=== PATIENT | male | born 1970 | race Caucasian/White ===

== ENCOUNTER 2018-09-02 13:06 | Emergency (ER) | payer MEDICAID ==
[~2018-09-02] VITALS: Ht 182.9 cm; Wt 120.2 kg
[2018-09-02 14:30] VITALS: BP 130/85
== END 2018-09-02 15:21 | disposition home or self-care (01) ==
LOC: ER 13:06
DX: K12.2 Cellulitis and abscess of mouth (principal); J45.909 Unspecified asthma, uncomplicated
CPT/HCPCS: 71046

== ENCOUNTER 2020-04-27 08:03 | Emergency (ER) | payer BC, MEDICAID ==
[~2020-04-27] VITALS: Ht 185.4 cm; Wt 120.7 kg
[2020-04-27 08:15] VITALS: BP 134/94
[2020-04-27] MEDS ORDERED: KETOROLAC TROMETH 60MG/2ML VIAL IM ONE (08:45)
== END 2020-04-27 09:06 | disposition home or self-care (01) ==
LOC: ER 08:03
DX: S46.911A Strain of unspecified muscle, fascia and tendon at shoulder and upper arm level, right arm, initial encounter (principal); M19.011 Primary osteoarthritis, right shoulder; E11.9 Type 2 diabetes mellitus without complications; J45.909 Unspecified asthma, uncomplicated; X58.XXXA Exposure to other specified factors, initial encounter; Y93.9 Activity, unspecified; Y92.89 Other specified places as the place of occurrence of the external cause; Y99.8 Other external cause status
CPT/HCPCS: 73030; 96372; 99283; J1885

== ENCOUNTER 2020-10-23 20:25 | Emergency (ER) | payer BC ==
[~2020-10-23] VITALS: Ht 185.4 cm; Wt 115.7 kg
[2020-10-24 01:00] VITALS: BP 128/74
[2020-10-24] MEDS ORDERED: TETANUS-DIPTH-ACEL PERTUSSIS 0.5ML SYR Tdap IM ONE (01:00)
== END 2020-10-24 01:27 | disposition home or self-care (01) ==
LOC: ER 20:26
DX: S01.511A Laceration without foreign body of lip, initial encounter (principal); S09.93XA Unspecified injury of face, initial encounter; E11.9 Type 2 diabetes mellitus without complications; S01.21XA Laceration without foreign body of nose, initial encounter; W19.XXXA Unspecified fall, initial encounter; Y93.89 Activity, other specified; Y92.89 Other specified places as the place of occurrence of the external cause; Y99.8 Other external cause status
CPT/HCPCS: 12013; 82962; 90471; 90715

== ENCOUNTER 2021-07-23 19:14 | Emergency (ER) | payer BC ==
[~2021-07-23] VITALS: Ht 185.4 cm; Wt 133.8 kg
[2021-07-23 20:08] LABS: Basophils # (auto) 0.1 10 ^3/uL (0-0.2); Basophils % (auto) 0.8 % (0.0-2.0); Eosinophils # (auto) 0.1 10 ^3/uL (0-0.8); Hemoglobin 16.8 g/dL (13.5-17.5); Lymphocytes # (auto) 2.2 10 ^3/uL (0.4-5.4); Lymphocytes % (auto) 26.3 % (10.0-50.0); Mean Corpuscular Hemoglobin 29.7 pg (28.0-32.0); Mean Corpuscular Hgb Conc. 33.7 g/dL (32.0-36.0); Mean Corpuscular Volume 88.4 fL (80.0-100.0); Monocytes # (auto) 0.6 10 ^3/uL (0-1.3); Monocytes % (auto) 7.1 % (0.0-12.0); Neutrophils # (auto) 5.5 10 ^3/uL (1.6-8.6); Neutrophils % (auto) 64.8 % (37.0-80.0); Nucleated Red Blood Cells % 0.2 %; Red Blood Cells 5.66 10^6/uL (4.5-5.90); Red Cell Distribution Width 13.4 % (11.8-14.3); White Blood Cell 8.5 10^3/uL (4.4-10.8)
[2021-07-23 20:24] LABS: Albumin 3.7 g/dL (3.4-5.0); Anion Gap 9 (5-15); Blood Urea Nitrogen 21 mg/dL (7-18); Calcium 9.3 mg/dL (8.5-10.1); Carbon Dioxide 29 mmol/L (21-32); Chloride 98 mmol/L (98-107); Glucose 333 mg/dL (74-106); Potassium 4.2 mmol/L (3.5-5.1); Sodium 136 mmol/L (136-145)
[2021-07-23 20:30] LABS: Alanine Aminotransferase 41 U/L (16-61); Alkaline Phosphatase 119 U/L (45-117); Aspartate Aminotransferase 19 U/L (15-37); BUN/Creatinine Ratio 18.1; Bilirubin, Total 0.4 mg/dL (0.2-1.0); GFR African American 86 mL/min; GFR Non-African American 71 mL/min; Total Protein 7.6 g/dL (6.4-8.2)
[2021-07-23 21:09] LABS: Lactic Acid w/Reflex 2.3 mmol/L (0.4-2.0)
[2021-07-24 03:49] VITALS: BP 140/92
[2021-07-24] MEDS ORDERED: DexAMETHasone SOD PHOS 10MG/1ML VIAL INJ IV ONE (05:45)
== END 2021-07-24 03:58 | disposition home or self-care (01) ==
LOC: ER 19:15
DX: J44.1 Chronic obstructive pulmonary disease with (acute) exacerbation (principal); Z20.822 Contact with and (suspected) exposure to COVID-19
CPT/HCPCS: 36415; 71045; 80053; 83605; 84484; 85025; 87426; 93005

== ENCOUNTER 2022-02-19 20:39 | Emergency (ER) | payer SELFPAY ==
[~2022-02-19] VITALS: Ht 185.4 cm; Wt 104.3 kg
[2022-02-19 20:40] VITALS: BP 135/90
[2022-02-19] MEDS ORDERED: KETOROLAC TROMETH 60MG/2ML VIAL IM ONE (21:15)
[2022-02-19] MEDS ORDERED: BACITRACIN TOP OINT 1 UD PKG TOP ONE ×3 (21:30→21:52)
[2022-02-19] MEDS ORDERED: BAC09TP TOP (23:14)
== END 2022-02-19 23:11 | disposition left against medical advice (07) ==
LOC: ER 20:39
DX: T26.82XA Corrosions of other specified parts of left eye and adnexa, initial encounter (principal); T26.81XA Corrosions of other specified parts of right eye and adnexa, initial encounter; J45.909 Unspecified asthma, uncomplicated; E11.9 Type 2 diabetes mellitus without complications; T65.91XA Toxic effect of unspecified substance, accidental (unintentional), initial encounter; Y92.9 Unspecified place or not applicable
CPT/HCPCS: 96372; 99284; J1885; J7030

== ENCOUNTER 2022-12-08 10:58 | Emergency (ER) | payer SELFPAY ==
[~2022-12-08] VITALS: Ht 185.4 cm; Wt 114.2 kg
[~2022-12-08 10:58] MED LIST: BAC09TP TOP
[2022-12-08 15:06] VITALS: BP 133/99
[2022-12-08] MEDS ORDERED: ACETAMINOPHEN 500 MG TAB PO ONE (15:15)
[2022-12-08] MEDS ORDERED: AMOX-277 PO (15:15)
[2022-12-08] MEDS ORDERED: cefTRIAXone SOD 1,000 MG VL IM ONE (15:15)
== END 2022-12-08 15:34 | disposition home or self-care (01) ==
LOC: ER 10:58
DX: H66.92 Otitis media, unspecified, left ear (principal); J02.9 Acute pharyngitis, unspecified; J45.909 Unspecified asthma, uncomplicated; E11.9 Type 2 diabetes mellitus without complications
CPT/HCPCS: 96375; 99283; J0696

== ENCOUNTER 2024-09-01 11:22 | Emergency (ER) | payer BC, MEDICAID ==
[~2024-09-01] VITALS: Ht 185.4 cm; Wt 112.2 kg
[~2024-09-01 11:22] MED LIST changes: +AMOX875T4 PO
[2024-09-01 11:55] LABS: Basophils # (auto) 0.1 10 ^3/uL (0-0.2); Eosinophils # (auto) 0.2 10 ^3/uL (0-0.8); Eosinophils % (auto) 2.1 % (0.0-7.0); Hematocrit 46.4 % (41.0-53.0); Hemoglobin 15.9 g/dL (13.5-17.5); Lymphocytes # (auto) 3.4 10 ^3/uL (0.4-5.4); Lymphocytes % (auto) 33.4 % (10.0-50.0); Mean Corpuscular Hemoglobin 29.7 pg (28.0-32.0); Mean Corpuscular Hgb Conc. 34.4 g/dL (32.0-36.0); Mean Corpuscular Volume 86.4 fL (80.0-100.0); Monocytes # (auto) 0.8 10 ^3/uL (0-1.3); Monocytes % (auto) 7.9 % (0.0-12.0); Neutrophils # (auto) 5.7 10 ^3/uL (1.6-8.6); Neutrophils % (auto) 55.6 % (37.0-80.0); Nucleated Red Blood Cells % 0.2 %; Platelet Count (auto) 312 10^3/uL (140-450); Red Blood Cells 5.37 10^6/uL (4.5-5.90); Red Cell Distribution Width 13.7 % (11.8-14.3); White Blood Cell 10.3 10^3/uL (4.4-10.8)
[2024-09-01 12:15] LABS: Alanine Aminotransferase 24 U/L (7-40); Albumin 4.5 g/dL (3.2-4.8); Alkaline Phosphatase 110 U/L (46-116); Anion Gap 7 (5-15); Aspartate Aminotransferase 9 U/L (13-40); Blood Urea Nitrogen 21 mg/dL (9-23); Calcium 10.2 mg/dL (8.7-10.4); Carbon Dioxide 29 mmol/L (20-31); Chloride 100 mmol/L (98-107); Glucose 215 mg/dL (74-106); Sodium 136 mmol/L (136-145)
[2024-09-01 12:16] LABS: Bilirubin, Total 0.5 mg/dL (0.2-1.0); Total Protein 7.3 g/dL (5.7-8.2)
[2024-09-01 12:17] LABS: INR 1.03 (0.9-1.15); Partial Thromboplastin Time 28.2 SEC (24.5-34.5); Prothrombin Time 10.9 sec (9.3-11.8)
[2024-09-01] MEDS: ALBUTEROL SULF 2.5 MG/0.5ML(0.5%) NEB SOLN NEB ONE (13:42)
[2024-09-01 17:23] VITALS: PULSE 89; RESP 16; O2SAT 98
[2024-09-01] MEDS: IOHEXOL 350 MG/ML 100ML IJ ONE (17:33)
[2024-09-01] MEDS ORDERED: PANT40TA2 PO (19:14)
[2024-09-01 19:30] VITALS: BP 134/77; PULSE 87; RESP 19; TEMP 98.6; O2SAT 96
== END 2024-09-01 19:44 | disposition home or self-care (01) ==
LOC: ER 11:22
DX: K20.90 Esophagitis, unspecified without bleeding (principal); K29.70 Gastritis, unspecified, without bleeding; R06.02 Shortness of breath; R07.89 Other chest pain; R05.9 Cough, unspecified; J44.9 Chronic obstructive pulmonary disease, unspecified; E11.9 Type 2 diabetes mellitus without complications
CPT/HCPCS: 36415; 71045; 71275; 80053; 84484; 85025; 85379; 85610; 85730; 93005; 94640; 99285; Q9967

== ENCOUNTER 2024-11-06 13:30 | Inpatient (IN) | payer SELFPAY ==
[~2024-11-06] VITALS: Ht 185.4 cm; Wt 107.0 kg
[~2024-11-06 13:30] MED LIST changes: +PANT40TA2 PO
--- NOTE | 2024-11-06 14:01 | ED.PDOC ---
HPI Comments HPI: Poor Historian. 54-year-old male presents to emergency department for evaluation of dizziness spells for the last 2-3 weeks. Patient today was getting out of his truck in the next thing he knows he wakes up on the concrete driveway. He had a syncopal episode with closed head injury. Denies any pain anywhere in his body. This never happened before. VITALS: T:97.5 HR:120 RR:18 O2:96 BP:111/82 SOCIAL HX: DENIES TOBACCO USAGE, ETOH CONSUMPTION, OR ILLICIT DRUG USE SHX: SPINAL/CERVICAL PMHX: DM ALLERGIES: NKA REVIEW OF SYSTEMS: CONSTITUTIONAL: Denies acute: fever, diaphoresis, chills, generalized weakness. HEAD: Denies acute: headache, photophobia Eyes: Denies acute: Double vision, vision loss, eye pain, eye discharge. EARS: Denies acute: tinnitus, hearing loss, ear discharge, ear pain, THROAT: Denies acute: sore throat, swelling, difficulty swallowing , pain with swallowing, change in voice. NECK: Denies acute: neck pain, neck swelling, stiff neck. HEART: Denies acute : chest pain, palpitations, LUNGS: Denies acute: SOB, wheezing, cough, hemoptysis ABDOMEN: Denies acute: abdominal pain, Nausea, Vomiting, diarrhea, melena , hematemesis, hematochezia SKIN: Denies acute: rash, redness, lesions, itchiness. EXTREMITIES: Denies acute: calf pain, numbness, tingling, weakness, denies pain in extremity. Denies acute: Low back pain. Neuro: Denies acute: focal neurological deficit, motor or sensory focal neurological deficit, tremors, seizure like activity, confusion, change in mental status, loss of bowel or bladder function, cauda equina like symptoms. : Denies acute: dysuria, hematuria, flank pain, increase in urinary frequency. PSYCH: Denies acute: hallucination, suicidal ideation, homicidal ideation. PHYSICAL EXAM: General: no acute distress, awake and alert. Head: normocephalic, atraumatic. Cervical spine: Palpation of the posterior midline of the cervical spine reveals no focal swelling, erythema, focal tenderness to palpation. Patient has normal range of motion. Neck: supple, trachea is midline, no swelling. Throat: Normal phonation. Eyes:, no erythema, no purulent discharge, no proptosis, no icterus. Heart: regular tachycardic, no significant murmur appreciated. Lungs: no apparent respiratory distress, Able to speak in full sentences. No wheezing, no rhonchi, no crackles. No stridors Clear to auscultation bilaterally. Abdomen: non tender to palpation, non distended, soft, no guarding, no rebound, + bowel sounds. Neuro: Awake, Alert, oriented to name, self, situation, follows commands GCS=15. Speech is normal. Skin: no petechia, no purpura, no cyanosis, non-pale, not jaundice. Lower extremities: --no - Pitting edema no deformity, no focal swelling, no calf TTP. Makes eye contact. moves all four extremities. Face: no apparent facial droop. Ambulating in the ED independently. Stroke: finger to nose cerebellar testing is intact. No pronator drift. Symmetrical media monitor muscle strength b/l PERRLA, EOM-I CN 2-12 are grossly intact, No nystagmus. No nuchal rigidity, Kernig's sign, Brudzinski's sign, no meningeal signs. Chief Complaint: Syncope Time Seen by MD: 13:40 Primary Care Provider: DENIES Reviewed Notes: Nurses Notes, Medications, Allergies Allergies: Coded Allergies: NO KNOWN ALLERGIES (Unverified , 09/02/18) Home Meds Active Scripts Pantoprazole Sodium Sesquihydr (Protonix) 40 Mg Tab, 40 MG PO DAILY, #30 TAB Prov:NABIL PAVON MD 09/01/24 Amoxicillin & Pot Clavulanate (Amoxicillin/Potassium Cla) 875 Mg Tab, 875 MG PO BID for 10 Days, #20 TAB 0 Refills Prov:MALIK BETTS 12/08/22 Bacitracin (Bacitracin Oint) 1 Applic Ap, 1 APPLIC TOP DAILY for 20 Days, #1 BOTTLE Prov:MATEO MARQUIS MD 02/19/22 Information Source: Patient Mode of Arrival: Ambulatory Severity: Mild Timing: Hours Duration: Since onset Prehospital treatment: NTG Cardiac Risk Factors: None PE Risk Factors: None History of: None Associated Signs and Symptoms: None Was a procedure done? Was a procedure done?: No X-Ray, Labs, Meds, VS Vital Signs Date Time Temp Pulse Resp B/P (MAP) Pulse Ox O2 Delivery O2 Flow Rate FiO2 11/06/24 17:55 114 19 95 Room Air* 0 21 11/06/24 17:55 98.2 114 20 114/82 (93) 98 98.2 11/06/24 17:54 114 20 114/82 11/06/24 13:44 98.0 120 18 111/82 (92) 96 11/06/24 13:39 123 Lab Test 11/06/24 17:42 11/06/24 17:02 11/06/24 15:24 11/06/24 14:11 Range/Units Urine Color Yellow Yellow Urine Clarity Clear Clear Urine pH 5.5 5.0-9.0 Urine Specific [place] 1.025 1.001-1.035 Urine Protein 1+ H Negative Urine Ketones 2+ H Negative Urine Blood Negative Negative /uL Urine Nitrite Negative Negative Urine Bilirubin Negative Negative Urine Urobilinogen Normal Negative mg/dL Urine Leukocyte Esterase Negative Negative /uL Urine RBC 1 0 - 3 /hpf Urine WBC 1 0 - 3 /hpf Urine Squamous Epithelial Cells Few <5 /hpf Urine Bacteria None seen None Seen /hpf Urine Hyaline Casts Few 0 - 2 /lpf Urine Mucus Few None Seen Urine Glucose 3+ H Normal mg/dL Urine Opiates Screen Neg NEGATIVE Urine Fentanyl Screen Neg NEGATIVE Urine Barbiturates Screen Neg NEGATIVE Urine Phencyclidine Screen Neg NEGATIVE Urine Amphetamines Screen Neg NEGATIVE Urine Benzodiazepines Screen Neg NEGATIVE Urine Cocaine Screen Neg NEGATIVE Urine Cannabinoids Screen Neg NEGATIVE Troponin I High Sensitivity 4 3 L 3 L </=54 ng/L White Blood Count 10.3 4.4-10.8 10^3/uL Red Blood Count 5.75 4.5-5.90 10^6/uL Hemoglobin 16.9 13.5-17.5 g/dL Hematocrit 49.7 41.0-53.0 % Mean Corpuscular Volume 86.5 80.0-100.0 fL Mean Corpuscular Hemoglobin 29.4 28.0-32.0 pg Mean Corpuscular Hemoglobin Concent 34.0 32.0-36.0 g/dL Red Cell Distribution Width 13.6 11.8-14.3 % Platelet Count 331 140-450 10^3/uL Mean Platelet Volume 8.1 6.9-10.8 fL Neutrophils (%) (Auto) 73.6 37.0-80.0 % Lymphocytes (%) (Auto) 17.5 10.0-50.0 % Monocytes (%) (Auto) 7.2 0.0-12.0 % Eosinophils (%) (Auto) 1.3 0.0-7.0 % Basophils (%) (Auto) 0.4 0.0-2.0 % Neutrophils # (Auto) 7.6 1.6-8.6 10 ^3/uL Lymphocytes # (Auto) 1.8 0.4-5.4 10 ^3/uL Monocytes # (Auto) 0.7 0-1.3 10 ^3/uL Eosinophils # (Auto) 0.1 0-0.8 10 ^3/uL Basophils # (Auto) 0 0-0.2 10 ^3/uL Nucleated Red Blood Cells 0.1 % D-Dimer, Quantitative 0.38 0.0-0.49 mg/L FEU Sodium Level 136 136-145 mmol/L Potassium Level 4.5 3.5-5.1 mmol/L Chloride Level 99 98-107 mmol/L Carbon Dioxide Level 28 20-31 mmol/L Anion Gap 9 5-15 Blood Urea Nitrogen 39 H 9-23 mg/dL Creatinine 1.83 H 0.700-1.30 mg/dL Glomerular Filtration Rate Calc 44 >90 mL/min BUN/Creatinine Ratio 21.3 H 10.0-20.0 Serum Glucose 252 H 74-106 mg/dL Lactic Acid Level 1.8 0.4-2.0 mmol/L Calcium Level 10.6 H 8.7-10.4 mg/dL Magnesium Level 2.2 1.6-2.6 mg/dL Total Bilirubin 0.7 0.2-1.0 mg/dL Aspartate Amino Transferase (AST) 22 13-40 U/L Alanine Aminotransferase (ALT) 27 7-40 U/L Alkaline Phosphatase 168 H 46-116 U/L Creatine Kinase 95 46-171 U/L Total Protein 7.7 5.7-8.2 g/dL Albumin 4.9 H 3.2-4.8 g/dL Current Medications Medications (Trade) Dose Ordered Sig/Dino Route Start Time Stop Time Status Last Admin Sodium Chloride 1,000 ml @ 1,000 mls/hr Q1H ONCE IV 11/06/24 14:00 11/06/24 14:59 DC 11/06/24 16:41 Morphine Sulfate 4 mg ONCE ONCE IV 11/06/24 17:00 11/06/24 17:01 DC 11/06/24 17:54 Ondansetron HCl (Zofran) 4 mg ONCE ONCE IV 11/06/24 17:00 11/06/24 17:01 DC 11/06/24 17:54 [place] [address] Ph: [phone] DIAGNOSTIC IMAGING Diagnostic Imaging Report : [id number] Signed PATIENT: AGUSTO MUNROE PACCT: [id number] UNIT: [id number] : 1970 LOC: ER ROOM / BED: / AGE / SEX: 54 / M ADM STATUS: REG ER SERVICE 1346 ORDERING PHYSICIAN: GARLAND GAXIOLA DO PROCEDURE(s): CXRP - CHEST PORTABLE REASON: syncope, [facility] ORDER NUMBER(s): [id number], ACCESSION NUMBER(s): [id number] CHEST RADIOGRAPH Indication: syncope, [facility] Technique: Single frontal view of the chest was obtained COMPARISON: XY CHEST PORTABLE on DOS: 09/01/24, CHEST PORTABLE on DOS: 07/23/21, CXRP on DOS: 07/23/21 FINDINGS: Lines and Tubes: None Lungs: Clear Pleura: No effusion. No pneumothorax. Cardiomediastinal contours: Unremarkable Bones: Unremarkable Metallic opacity in the visualized midline neck, projecting over the trachea, is unchanged since July 23, 2021, probably an implant /device or foreign body. IMPRESSION: 1. No acute disease. ATED BY: AVA DICKENS MD DICTATED DATE/TIME: 11/06/241422 SIGNED BY: AVA DICKENS MD SIGNED DATE/TIME: 11/06/241422 CC: [address] [id number] Ph: [phone] DIAGNOSTIC IMAGING Diagnostic Imaging Report : [id number] Signed PATIENT: AGUSTO MUNROE PACCT: [id number] UNIT: [id number] : 1970 LOC: ER ROOM / BED: / AGE / SEX: 54 / M ADM STATUS: REG ER SERVICE 1346 ORDERING PHYSICIAN: GARLAND GAXIOLA DO PROCEDURE(s): HWOCT - HEAD WITHOUT CONTRAST REASON: syncope, [facility] ORDER NUMBER(s): [id number], ACCESSION NUMBER(s): [id number] EXAM: CT HEAD WITHOUT CONTRAST INDICATION: syncope, [facility] TECHNIQUE: CT of the head without intravenous contrast. Coronal and sagittal reformatted images are submitted. Radiation Dose : 1. Head: CT Dose: CTDI volume is 62.32 mGy. Dose-length product is 998.83 mGy*cm The dose indicators for CT are the volume Computed Tomography (CT) Dose Index (CTDIvol) and the Dose Length Product (DLP), and are measured in units of mGy and mGy-cm, respectively. These indicators are not patient dose, but values generated from the CT scanner acquisition factors. The report includes radiation exposure data for exposures received during this examination. All CT scans at this medical facility are performed using dose modulation techniques as appropriate to a performed exam including the following: Automated exposure control was utilized; adjustment of the MA and/or KV according to patient size; and use of iterative reconstruction technique. COMPARISON: None FINDINGS: There is no evidence of acute intracranial hemorrhage, extra-axial collection, mass effect, midline shift, herniation or hydrocephalus. The ventricles, sulci and cisterns are age appropriate. The nicole-white differentiation is intact. The visualized paranasal sinuses and mastoid air cells are clear. No depressed calvarial fracture. The surrounding soft tissues are unremarkable. IMPRESSION: 1. No evidence of acute intracranial abnormality. ATED BY: GEOVANNA WHEATLEY MD DICTATED DATE/TIME: 11/06/241413 SIGNED BY: GEOVANNA WHEATLEY MD SIGNED DATE/TIME: 11/06/241413 CC: Time of 1ST Reevaluation: 14:20 Reevaluation 1ST: Unchanged Patient Education/Counseling: Diagnosis, Treatment Family Education/Counseling: No Family Present Comments 54-year-old male presents to emergency department for evaluation of dizziness spells for the last 2-3 weeks. Patient was found with the above mentioned diagnosis. the following medications were ordered: NS 1L the following tests were ordered: LABS, EKG, CXR, CT Patient ED course and VS have been stabilized. Patient has been reassessed in the ED and remained in a stable condition. Pertinent incidental findings were discussed with the patient and/or family. Patient/family voices understanding and is agreeable with plan. Patient has been observed in the ED adequate length of time to insure improvement/stability. Escalation of care considered: Consideration of escalation to observation or admission Patient was ADMITTED to the medicine team for further evaluation and treatment of their presentation. Patient was discharged. All the reports of any imaging studies that were ordered by myself were reviewed by myself. Departure 1 Departure Time of Disposition: 14:12 Impression: Primary Impression: Syncope and collapse Additional Impressions: Closed head injury Acute renal insufficiency Disposition: ADMITTED INPATIENT Admit to: Tele Condition: Guarded Additional Instructions: [place] [address] Ph: [phone] DIAGNOSTIC IMAGING Diagnostic Imaging Report : [id number] Signed PATIENT: AGUSTO MUNROE ACCT: [id number] UNIT: [id number] : 1970 LOC: ER ROOM / BED: / AGE / SEX: 54 / M ADM STATUS: REG ER SERVICE 1346 ORDERING PHYSICIAN: GARLAND GAXIOLA DO PROCEDURE(s): CXRP - CHEST PORTABLE REASON: syncope, [facility] ORDER NUMBER(s): [id number], ACCESSION NUMBER(s): [id number] CHEST RADIOGRAPH Indication: syncope, [facility] Technique: Single frontal view of the chest was obtained COMPARISON: XY CHEST PORTABLE on DOS: 09/01/24, CHEST PORTABLE on DOS: 07/23/21, CXRP on DOS: 07/23/21 FINDINGS: Lines and Tubes: None Lungs: Clear Pleura: No effusion. No pneumothorax. Cardiomediastinal contours: Unremarkable Bones: Unremarkable Metallic opacity in the visualized midline neck, projecting over the trachea, is unchanged since July 23, 2021, probably an implant /device or foreign body. IMPRESSION: CC: 1. No acute disease. ATED BY: AVA DICKENS MD DICTATED DATE/TIME: 11/06/24 1423 SIGNED BY: AVA DICKENS MD SIGNED DATE/TIME: 11/06/24 1423 CC: [place] [address] Ph: [phone] DIAGNOSTIC IMAGING Diagnostic Imaging Report : [id number] Signed PATIENT: AGUSTO MUNROE ACCT: [id number] UNIT: [id number] : 1970 LOC: ER ROOM / BED: / AGE / SEX: 54 / M ADM STATUS: REG ER SERVICE 1346 ORDERING PHYSICIAN: GARLAND GAXIOLA DO PROCEDURE(s): HWOCT - HEAD WITHOUT CONTRAST REASON: syncope, [facility] ORDER NUMBER(s): [id number], ACCESSION NUMBER(s): [id number] EXAM: CT HEAD WITHOUT CONTRAST INDICATION: syncope, [facility] TECHNIQUE: CT of the head without intravenous contrast. Coronal and sagittal reformatted images are submitted. Radiation Dose : 1. Head: CT Dose: CTDI volume is 62.32 mGy. Dose-length product is 998.83 mGy*cm The dose indicators for CT are the volume Computed Tomography (CT) Dose Index (CTDIvol) and the Dose Length Product (DLP), and are measured in units of mGy and mGy-cm, respectively. These indicators are not patient dose, but values generated from the CT scanner acquisition factors. The report includes radiation exposure data for exposures received during this examination. All CT scans at this medical facility are performed using dose modulation techniques as appropriate to a performed exam including the following: Automated exposure control was utilized; adjustment of the MA and/or KV according to patient size; and use of iterative reconstruction technique. COMPARISON: None FINDINGS: There is no evidence of acute intracranial hemorrhage, extra-axial collection, mass effect, midline shift, herniation or hydrocephalus. The ventricles, sulci and cisterns are age appropriate. The nicole-white differentiation is intact. The visualized paranasal sinuses and mastoid air cells are clear. No depressed calvarial fracture. The surrounding soft tissues are unremarkable. IMPRESSION: 1. No evidence of acute intracranial abnormality. ATED BY: GEOVANNA WHEATLEY MD DICTATED DATE/TIME: 11/06/241413 SIGNED BY: GEOVANNA WHEATLEY MD SIGNED DATE/TIME: 11/06/24 141 Discharged With: Self I personally scribed for GARLAND GAXIOLA DO ([email or web address]) on 11/06/24 at 14:01. Electronically submitted by Shayla Zurita ([email or web address]). I personally scribed for GARLAND GAXIOLA DO ([email or web address]) on 11/06/24 at 16:40. Electronically submitted by Shayla Zurita ([email or web address]). I personally scribed for GARLAND GAXIOLA DO ([email or web address]) on 11/06/24 at 16:43. Electronically submitted by Shayla Zurita ([email or web address]). GARLAND GAXIOLA DO Nov 06, 2024 14:01
--- NOTE | 2024-11-06 14:16 | DVH ---
EXAM: CT HEAD WITHOUT CONTRAST INDICATION: syncope, [facility] TECHNIQUE: CT of the head without intravenous contrast. Coronal and sagittal reformatted images are submitted. Radiation Dose : 1. Head: CT Dose: CTDI volume is 62.32 mGy. Dose-length product is 998.83 mGy*cm The dose indicators for CT are the volume Computed Tomography (CT) Dose Index (CTDIvol) and the Dose Length Product (DLP), and are measured in units of mGy and mGy-cm, respectively. These indicators are not patient dose, but values generated from the CT scanner acquisition factors. The report includes radiation exposure data for exposures received during this examination. All CT scans at this medical facility are performed using dose modulation techniques as appropriate to a performed exam including the following: Automated exposure control was utilized; adjustment of the MA and/or KV according to patient size; and use of iterative reconstruction technique. COMPARISON: None FINDINGS: There is no evidence of acute intracranial hemorrhage, extra-axial collection, mass effect, midline s hift, herniation or hydrocephalus. The ventricles, sulci and cisterns are age appropriate. The nicole-white differentiation is intact. The visualized paranasal sinuses and mastoid air cells are clear. No depressed calvarial fracture. The surrounding soft tissues are unremarkable. IMPRESSION: 1. No evidence of acute intracranial abnormality.
--- NOTE | 2024-11-06 14:25 | DVH ---
CHEST RADIOGRAPH Indication: syncope, [facility] Technique: Single frontal view of the chest was obtained COMPARISON: XY CHEST PORTABLE on DOS: 09/01/24, CHEST PORTABLE on DOS: 07/23/21, CXRP on DOS: 07/23/21 FINDINGS: Lines and Tubes: None Lungs: Clear Pleura: No effusion. No pneumothorax. Cardiomediastinal contours: Unremarkable Bones: Unremarkable Metallic opacity in the visualized midline neck, projecting over the trachea, is unchanged since Sept emb2020, probably an implant /device or foreign body. IMPRESSION: 1. No acute disease.
[2024-11-06 14:58] LABS: Basophils # (auto) 0 10 ^3/uL (0-0.2); Basophils % (auto) 0.4 % (0.0-2.0); Eosinophils # (auto) 0.1 10 ^3/uL (0-0.8); Eosinophils % (auto) 1.3 % (0.0-7.0); Hematocrit 49.7 % (41.0-53.0); Hemoglobin 16.9 g/dL (13.5-17.5); Lymphocytes # (auto) 1.8 10 ^3/uL (0.4-5.4); Lymphocytes % (auto) 17.5 % (10.0-50.0); Mean Corpuscular Hemoglobin 29.4 pg (28.0-32.0); Mean Corpuscular Volume 86.5 fL (80.0-100.0); Monocytes # (auto) 0.7 10 ^3/uL (0-1.3); Monocytes % (auto) 7.2 % (0.0-12.0); Neutrophils # (auto) 7.6 10 ^3/uL (1.6-8.6); Neutrophils % (auto) 73.6 % (37.0-80.0); Nucleated Red Blood Cells % 0.1 %; Platelet Count (auto) 331 10^3/uL (140-450); Red Blood Cells 5.75 10^6/uL (4.5-5.90); Red Cell Distribution Width 13.6 % (11.8-14.3); White Blood Cell 10.3 10^3/uL (4.4-10.8)
[2024-11-06 15:13] LABS: Alanine Aminotransferase 27 U/L (7-40); Anion Gap 9 (5-15); Aspartate Aminotransferase 22 U/L (13-40); BUN/Creatinine Ratio 21.3 (10.0-20.0); Carbon Dioxide 28 mmol/L (20-31); Chloride 99 mmol/L (98-107); Creatine Kinase IFCC 95 U/L (46-171); Magnesium 2.2 mg/dL (1.6-2.6); Potassium 4.5 mmol/L (3.5-5.1); Sodium 136 mmol/L (136-145)
[2024-11-06 15:14] LABS: Bilirubin, Total 0.7 mg/dL (0.2-1.0); Total Protein 7.7 g/dL (5.7-8.2)
[2024-11-06 15:30] LABS: Albumin 4.9 g/dL (3.2-4.8); Alkaline Phosphatase 168 U/L (46-116); Blood Urea Nitrogen 39 mg/dL (9-23); Calcium 10.6 mg/dL (8.7-10.4); Glucose 252 mg/dL (74-106)
[2024-11-06] MEDS: SODIUM CHLORIDE 0.9% 1,000 ML IV ONE (16:41)
[2024-11-06 17:49] LABS: Urine Bacteria None Seen /hpf (None Seen)
[2024-11-06] MEDS: ONDANSETRON HCL 4 MG/2 ML VIAL IV ONE (17:54)
[2024-11-06] MEDS: MORPHINE SULFATE 4 MG/ML SYR/VIAL IV ONE (17:54)
[2024-11-06 17:55] VITALS: PULSE 114; RESP 19; O2SAT 95
[2024-11-06 18:19] LABS: Urine Blood Negative /uL (Negative); Urine Clarity Clear (Clear); Urine Color Yellow (Yellow); Urine Hyaline Cast FEW /lpf (0 - 2); Urine Mucus FEW (None Seen); Urine Protein, UAD 1+ (Negative); Urine Specific Gravity 1.025 (1.001-1.035); Urine Squamous Epithelial Cell FEW /hpf (<5); Urine Urobilinogen Normal (Negative); Urine WBC 1 /hpf (0 - 3); Urine pH 5.5 (5.0-9.0)
[2024-11-06 18:20] LABS: Amphetamine Screen, Urine Neg (NEGATIVE); Barbiturate Scree,Urine Neg (NEGATIVE); Benzodiazephine Screen, Urine Neg (NEGATIVE); Cannabinoid Screen, Urine Neg (NEGATIVE); Cocaine Screen, Urine Neg (NEGATIVE); Opiate Scree,Urine Neg (NEGATIVE); Phencyclidine Screen, Urine Neg (NEGATIVE)
[2024-11-06] MEDS ORDERED: ACETAMINOPHEN 325 MG TAB PO PRN (21:30)
[2024-11-06] MEDS ORDERED: ONDANSETRON HCL 4 MG/2 ML VIAL IV PRN (21:30)
[2024-11-06] MEDS ORDERED: DEXTROSE (50%) 50ML SYRG IV PRN (21:30)
[2024-11-06] MEDS ORDERED: DOCUSATE SOD 100 MG CAP PO PRN (21:30)
[2024-11-06] MEDS: SODIUM CHLOR 0.9% PF (SALINE LOCK) 10ML VIAL/SYR IV SCH (22:03)
[2024-11-06] MEDS: HYDROcodone-ACET 5/325MG TAB PO PRN (23:03)
[2024-11-07] MEDS: InsuLIN REG 1unit/0.01ml Soln (100units/ml) SC SCH
[2024-11-07] MEDS: ACCU-CHEK COMFORT CURVE STRIP VI SCH (00:02)
--- NOTE | 2024-11-07 00:07 | DVHHP2 ---
History of Present Illness Reason for Visit: Syncope History of Present Illness The patient is a 54-year-old male with past medical history of diabetes mellitus who presented to [facility] ED for evaluation of syncopal episode. Patient reports he has been having dizzy spells 40 the past 2-3 weeks; today as he was getting out his truck he had syncopal episode, wake up on the concrete driveway with closed head injury, unable to recall event. Patient was seen and evaluated in the ED, laboratory data shows WBC 10.3, platelets 331, sodium 136, potassium 4.5, BUN 39, creatinine 1.83, GFR 44, glucose 252, calcium 10.6, troponin 4, albumin 4.9, blood pressure 114/82, heart rate 114, temperature 98. 2 F, O2 saturation 98% room air. Head CT showed no evidence of acute intracranial abnormality. Please see medication orders section in the computer. On my assessment, patient denied chest pain, no headache, no dizziness, no diaphoresis, no shortness of breath, no nausea, no vomiting, no fever, no chills. Patient was admitted for further evaluation and medical management. Past Medical History Diabetes mellitus Past Surgical History Spinal/cervical surgery Family History Reviewed, noncontributory to the management of this case. Past Social History The patient lives at home, denies smoking, alcohol or illicit drugs abuse. Review of Systems Constitutional: Yes: Weakness; No: Fever, Chills, Sweats, Malaise, Other Eyes: No: Pain, Vision change, Conjunctivae inflammation, Eyelid inflammation, Other, Redness ENT: No: Ear pain, Ear discharge, Nose pain, Nose discharge, Nose congestion, Mouth pain, Mouth swelling, Throat pain, Throat swelling, Other Respiratory: No: Cough, Dry, Shortness of breath, SOB with excertion, Wheezing, Hemoptysis, Pleuritic Pain, Sputum, Wheezing, Other Cardiovascular: Other (Syncope); No: Chest Pain, Palpitations, Orthopnea, Paroxysmal Noc. Dyspnea, Edema, Lt Headedness Gastrointestinal: No: Nausea, Vomiting, Abdominal Pain, Diarrhea, Constipation, Melena, Hematochezia, Other Genitourinary: No Dysuria, No Frequency, No Incontinence, No Hematuria, No Retention, No Other Musculoskeletal: No: other, neck pain, shoulder pain, arm pain, back pain, hand pain, leg pain, foot pain Skin: No: Rash, Lesions, Jaundice, Bruising, Other Neurological: No: Weakness, Numbness, Incoordination, Change in speech, Confusion, Seizures, Other Allergies: Coded Allergies: NO KNOWN ALLERGIES (Unverified , 09/02/18) Medications Current Medications Medications Dose Ordered Sig/Dino Route Start Time Stop Time Status Last Admin Dose Admin Diagnostic Test (Pha) 1 strip IQ4HR 11/07/24 00:00 11/07/24 00:02 1 STRIP Insulin Human Regular IQ4HR SC 11/07/24 00:00 Dextrose 50 ml UD PRN IV 11/06/24 21:30 Sodium Chloride 10 ml Q8HR IV 11/06/24 22:00 11/06/24 22:03 10 ML Acetaminophen/ Hydrocodone Bitart 1 tab Q4HP PRN PO 11/06/24 21:30 11/06/24 23:03 1 TAB Ondansetron HCl 4 mg Q4HP PRN IV 11/06/24 21:30 Docusate Sodium 100 mg BIDPRN PRN PO 11/06/24 21:30 Acetaminophen 650 mg Q6HP PRN PO 11/06/24 21:30 Famotidine 20 mg DAILY IV 11/07/24 10:00 Exam Vital Signs Vital Signs Date Time Temp Pulse Resp B/P (MAP) Pulse Ox O2 Delivery O2 Flow Rate FiO2 11/06/24 23:03 107 16 107/97 11/06/24 23:00 98.0 97 98.0 11/06/24 17:55 Room Air* 0 21 General Appearance: Alert, Oriented X3, Cooperative, No acute distress HEENT: Atraumatic, PERRLA, EOMI, Mucous membr. moist/pink Respiratory: Clear to auscultation, Normal air movement Cardiovascular: Regular rate, Normal S1, Normal S2, No murmurs Abdominal: Normal bowel sounds, Soft, No tenderness, No hepatospenomegaly, No masses Extremities: No clubbing, No cyanosis, No edema, Normal pulses, No tendern ess/swelling Skin: No rashes, No breakdown, No significant lesion Neuro: Normal speech, Normal tone, Sensation intact, Cranial nerves 3-12 NL, Reflexes 2+, Other (Generalized weakness) Psych/Mental Status: Mental status NL, Mood NL Labs/Xrays Labs Test 1/4/25 17:42 11/06/24 17:02 11/06/24 14:11 Range/Units Urine Color Yellow Yellow Urine Clarity Clear Clear Urine pH 5.5 5.0-9.0 Urine Specific [place] 1.025 1.001-1.035 Urine Protein 1+ H Negative Urine Ketones 2+ H Negative Urine Blood Negative Negative /uL Urine Nitrite Negative Negative Urine Bilirubin Negative Negative Urine Urobilinogen Normal Negative mg/dL Urine Leukocyte Esterase Negative Negative /uL Urine RBC 1 0 - 3 /hpf Urine WBC 1 0 - 3 /hpf Urine Squamous Epithelial Cells Few <5 /hpf Urine Bacteria None seen None Seen /hpf Urine Hyaline Casts Few 0 - 2 /lpf Urine Mucus Few None Seen Urine Glucose 3+ H Normal mg/dL Urine Opiates Screen Neg NEGATIVE Urine Fentanyl Screen Neg NEGATIVE Urine Barbiturates Screen Neg NEGATIVE Urine Phencyclidine Screen Neg NEGATIVE Urine Amphetamines Screen Neg NEGATIVE Urine Benzodiazepines Screen Neg NEGATIVE Urine Cocaine Screen Neg NEGATIVE Urine Cannabinoids Screen Neg NEGATIVE Troponin I High Sensitivity 4 </=54 ng/L White Blood Count 10.3 4.4-10.8 10^3/uL Red Blood Count 5.75 4.5-5.90 10^6/uL Hemoglobin 16.9 13.5-17.5 g/dL Hematocrit 49.7 41.0-53.0 % Mean Corpuscular Volume 86.5 80.0-100.0 fL Mean Corpuscular Hemoglobin 29.4 28.0-32.0 pg Mean Corpuscular Hemoglobin Concent 34.0 32.0-36.0 g/dL Red Cell Distribution Width 13.6 11.8-14.3 % Platelet Count 331 140-450 10^3/uL Mean Platelet Volume 8.1 6.9-10.8 fL Neutrophils (%) (Auto) 73.6 37.0-80.0 % Lymphocytes (%) (Auto) 17.5 10.0-50.0 % Monocytes (%) (Auto) 7.2 0.0-12.0 % Eosinophils (%) (Auto) 1.3 0.0-7.0 % Basophils (%) (Auto) 0.4 0.0-2.0 % Neutrophils # (Auto) 7.6 1.6-8.6 10 ^3/uL Lymphocytes # (Auto) 1.8 0.4-5.4 10 ^3/uL Monocytes # (Auto) 0.7 0-1.3 10 ^3/uL Eosinophils # (Auto) 0.1 0-0.8 10 ^3/uL Basophils # (Auto) 0 0-0.2 10 ^3/uL Nucleated Red Blood Cells 0.1 % D-Dimer, Quantitative 0.38 0.0-0.49 mg/L FEU Sodium Level 136 136-145 mmol/L Potassium Level 4.5 3.5-5.1 mmol/L Chloride Level 99 98-107 mmol/L Carbon Dioxide Level 28 20-31 mmol/L Anion Gap 9 5-15 Blood Urea Nitrogen 39 H 9-23 mg/dL Creatinine 1.83 H 0.700-1.30 mg/dL Glomerular Filtration Rate Calc 44 >90 mL/min BUN/Creatinine Ratio 21.3 H 10.0-20.0 Serum Glucose 252 H 74-106 mg/dL Lactic Acid Level 1.8 0.4-2.0 mmol/L Calcium Level 10.6 H 8.7-10.4 mg/dL Magnesium Level 2.2 1.6-2.6 mg/dL Total Bilirubin 0.7 0.2-1.0 mg/dL Aspartate Amino Transferase (AST) 22 13-40 U/L Alanine Aminotransferase (ALT) 27 7-40 U/L Alkaline Phosphatase 168 H 46-116 U/L Creatine Kinase 95 46-171 U/L Total Protein 7.7 5.7-8.2 g/dL Albumin 4.9 H 3.2-4.8 g/dL PATIENT: AGUSTO MUNROE PACCT: [id number] UNIT: [id number] : 1970 LOC: ER ROOM / BED: / AGE / SEX: 54 / M ADM STATUS: REG ER SERVICE [id number] ORDERING PHYSICIAN: GARLAND GAXIOLA DO PROCEDURE(s): HWOCT - HEAD WITHOUT CONTRAST REASON: syncope, [facility] ORDER NUMBER(s): [id number], ACCESSION NUMBER(s): [id number] EXAM: CT HEAD WITHOUT CONTRAST INDICATION: syncope, [facility] TECHNIQUE: CT of the head without intravenous contrast. Coronal and sagittal reformatted images are submitted. Radiation Dose: 1. Head: CT Dose: CTDI volume is 62.32 mGy. Dose-length product is 998.83 mGy*cm The dose indicators for CT are the volume Computed Tomography (CT) Dose Index (CTDIvol) and the Dose Length Product (DLP), and are measured in units of mGy and mGy-cm, respectively. These indicators are not patient dose, but values generated from the CT scanner acquisition factors. The report includes radiation exposure data for exposures received during this examination. All CT scans at this medical facility are performed using dose modulation techniques as appropriate to a performed exam including the following: Automated exposure control was utilized; adjustment of the MA and/or KV according to patient size; and use of iterative reconstruction technique. COMPARISON: None FINDINGS: There is no evidence of acute intracranial hemorrhage, extra-axial collection, m ass effect, midline shift, herniation or hydrocephalus. The ventricles, sulci and cisterns are age appropriate. The nicole-white differentiation is intact. The visualized paranasal sinuses and mastoid air cells are clear. No depressed calvarial fracture. The surrounding soft tissues are unremarkable. IMPRESSION: 1. No evidence of acute intracranial abnormality. ORDERING PHYSICIAN: GARLAND GAXIOLA DO PROCEDURE(s): CXRP - CHEST PORTABLE REASON: syncope, [facility] ORDER NUMBER(s): [id number], ACCESSION NUMBER(s): [id number] CHEST RADIOGRAPH Indication: syncope, [facility] Technique: Single frontal view of the chest was obtained COMPARISON: XY CHEST PORTABLE on DOS: 09/01/24, CHEST PORTABLE on DOS: 07/23/21, CXRP on DOS: 07/23/21 FINDINGS: Lines and Tubes: None Lungs: Clear Pleura: No effusion. No pneumothorax. Cardiomediastinal contours: Unremarkable Bones: Unremarkable Metallic opacity in the visualized midline neck, projecting over the trachea, is unchanged since July 23, 2021, probably an implant /device or foreign body. IMPRESSION: 1. No acute disease. Assessment/Plan Assessment/Plan Syncope and collapse Closed head injury Generalized weakness Acute renal insufficiency Plan 1. Admit to telemetry unit 2. Breathing treatment 3. Pain control management 4. Management of fluids and electrolytes 5. Consultation for Cardiology 6. Diagnostic tests head CT 7. DVT prophylaxis-on SCDs 8. Repeat labs CBC, CMP in a.m. 9. Continue with current medical management 10. Treatment plan discussed with patient and RN. Patient verbalized understanding. Plan discussed with: Patient, Other (RN) My Orders Orders - TAHMINA ZAVALA DNP Procedure Category Date Status Time Consistent DIET 11/07/24 Transmitted Carb(Ccho)Diabetes Breakfast *[facility]. [facility] CONS 11/06/24 Transmitted -[place] 21:28 Glucose Blood PHA 11/07/24 In Process (Accu-Chek Comfort 00:00 Insulin R (Human) PHA 11/07/24 In Process (Insulin R) 00:00 Dextrose 50% Syringe PHA 11/06/24 In Process 21:30 Allergies ANMOL 11/06/24 In Process 21:28 Code Status CODE 11/06/24 Transmitted 21:28 Renal DIET 11/07/24 Transmitted Standard(2gna,3gk,Lopho) Breakfast Sodium Chloride Lock PHA 11/06/24 In Process (Saline Lock Ns) 22:00 Oxygen Per Hour RT 11/06/24 Transmitted 21:28 Hydrocodone-Acet PHA 11/06/24 In Process 5/325mg Tab ([place] 21:30 Ondansetron Hcl PHA 11/06/24 In Process (Zofran) 21:30 Docusate Sodium PHA 11/06/24 In Process Capsule (Colace 21:30 Fall Risk Precautions ANMOL 11/06/[address] 21:28 Complete Blood Count LAB 11/07/24 Transmitted 04:00 Comprehensive LAB 11/07/24 Transmitted Metabolic Panel 04:00 Condition: Serious ANMOL 11/06/24 In Process 21:28 Acetaminophen Tablet PHA 11/06/24 In Process (Tylenol Tablet) 21:30 Sequential ANMOL 11/06/24 In Process Compression Device Famotidine Injection PHA 11/07/24 In Process (Pepcid Injection) 10:00 Problem List: (1) Syncope and collapse (2) Closed head injury (3) Generalized weakness (4) Acute renal insufficiency Date of Service: Nov 06, 2024 Billing Provider: TAHMINA ZAVALA DNP Common Visit Codes: [id number] INP/OBS CARE (HIGH) TAHMINA ZAVALA DNP Nov 07, 2024 00:07
[2024-11-07] MEDS ORDERED: NITROGLYCERIN 0.4 MG SL TAB SL PRN (00:15)
[2024-11-07] MEDS ORDERED: MORPHINE SULFATE INJ 2 MG/ml SYRG IV PRN (00:15)
[2024-11-07 01:19] VITALS: PULSE 114; RESP 19; O2SAT 95
[2024-11-07 04:30] LABS: Basophils # (auto) 0.1 10 ^3/uL (0-0.2); Basophils % (auto) 0.7 % (0.0-2.0); Eosinophils # (auto) 0.2 10 ^3/uL (0-0.8); Eosinophils % (auto) 2.8 % (0.0-7.0); Hematocrit 43.9 % (41.0-53.0); Hemoglobin 15.2 g/dL (13.5-17.5); Lymphocytes % (auto) 24.5 % (10.0-50.0); Mean Corpuscular Hgb Conc. 34.6 g/dL (32.0-36.0); Mean Corpuscular Volume 86.5 fL (80.0-100.0); Monocytes # (auto) 0.8 10 ^3/uL (0-1.3); Monocytes % (auto) 10.6 % (0.0-12.0); Neutrophils # (auto) 4.9 10 ^3/uL (1.6-8.6); Neutrophils % (auto) 61.4 % (37.0-80.0); Nucleated Red Blood Cells % 0.2 %; Platelet Count (auto) 253 10^3/uL (140-450); Red Blood Cells 5.07 10^6/uL (4.5-5.90); Red Cell Distribution Width 13.7 % (11.8-14.3)
[2024-11-07 04:47] LABS: Alanine Aminotransferase 19 U/L (7-40); Albumin 4.1 g/dL (3.2-4.8); Anion Gap 8 (5-15); Aspartate Aminotransferase 16 U/L (13-40); BUN/Creatinine Ratio 20.7 (10.0-20.0); Calcium 9.5 mg/dL (8.7-10.4); Carbon Dioxide 27 mmol/L (20-31); Chloride 103 mmol/L (98-107); Potassium 3.8 mmol/L (3.5-5.1); Sodium 138 mmol/L (136-145)
[2024-11-07 04:48] LABS: Bilirubin, Total 0.6 mg/dL (0.2-1.0)
[2024-11-07 04:49] LABS: Total Protein 6.8 g/dL (5.7-8.2)
[2024-11-07 04:50] LABS: Alkaline Phosphatase 133 U/L (46-116); Blood Urea Nitrogen 31 mg/dL (9-23); Glucose 164 mg/dL (74-106)
--- NOTE | 2024-11-07 08:22 | DVHINCON2 ---
Date of service: Nov 07, 2024 Reason for Consultation Acute kidney injury History of Present Illness 54-year-old male with past medical history of diabetes. Patient reports no other medical conditions reports that he currently has no insurance and has not seen a primary medical doctor in some time. Reports he does not check his sugars very frequently. He states that over the last month he has had multiple episodes of dizziness and lightheadedness with change in vision. And he has had loss of consciousness at least 2 times. This most recent episode resulted in a fall and head injury. Nephrology consulted due to elevated creatinine level. Allergies: Coded Allergies: NO KNOWN ALLERGIES (Unverified , 09/02/18) Home Meds Active Scripts Pantoprazole Sodium Sesquihydr (Protonix) 40 Mg Tab, 40 MG PO DAILY, #30 TAB Prov:NABIL PAVON MD 09/01/24 Amoxicillin & Pot Clavulanate (Amoxicillin/Potassium Cla) 875 Mg Tab, 875 MG PO BID for 10 Days, #20 TAB 0 Refills Prov:MALIK BETTS PIPE STRAIGHTENER 12/08/22 Bacitracin (Bacitracin Oint) 1 Applic Ap, 1 APPLIC TOP DAILY for 20 Days, #1 BOTTLE Prov:MATEO MARQUIS MD 02/19/22 Current Medications Current Medications Medications (Trade) Dose Ordered Sig/Dino Route PRN Reason Start Time Stop Time Status Last Admin Diagnostic Test (Pha) (Accu-Chek Comfort Curve T) 1 strip IQ4HR 11/07/24 00:00 11/07/24 08:00 Insulin Human Regular (InsuLIN R) IQ4HR SC 11/07/24 00:00 11/07/24 08:00 Dextrose 50 ml UD PRN IV Blood Sugar LESS THAN 60 11/06/24 21:30 Sodium Chloride (Saline Lock Ns) 10 ml Q8HR IV 11/06/24 22:00 11/07/24 06:11 Acetaminophen/ Hydrocodone Bitart ([place] 5/325MG Tab) 1 tab Q4HP PRN PO MODERATE PAIN (4-6 PAIN SCALE) 11/06/24 21:30 11/06/24 23:03 Ondansetron HCl (Zofran) 4 mg Q4HP PRN IV NAUSEA / VOMITING 11/06/24 21:30 Docusate Sodium (Colace Capsule) 100 mg BIDPRN PRN PO FOR CONSTIPATION 11/06/24 21:30 Acetaminophen (Tylenol Tablet) 650 mg Q6HP PRN PO PAIN SCALE 1-3 OR TEMP>100.4 11/06/24 21:30 Famotidine (Pepcid Injection) 20 mg DAILY IV 11/07/24 10:00 Nitroglycerin (Ntrostat Sublingual) 0.4 mg Q5MINP PRN SL FOR CHEST PAIN 11/07/24 00:15 Morphine Sulfate 2 mg Q30M PRN IV FOR CHEST PAIN 11/07/24 00:15 Review of Systems Loss of consciousness H&P Exam Vital Signs/I&O Vital Sign Date Time Temp Pulse Resp B/P (MAP) Pulse Ox O2 Delivery O2 Flow Rate FiO2 11/07/24 06:00 97 17 116/80 (92) 95 11/07/24 01:19 Room Air* 0 21 11/06/24 23:00 98.0 98.0 Intake and Output 11/06/24 11/07/24 19:00 07:00 Intake Total 1000 ml Balance 1000 ml Intake IV Total 1000 ml Physical Exam Middle-aged female Not in overt distress Abdomen is soft No pitting edema Regular rate and rhythm Labs/Diagnostic Data Labs/Diagnostic Data Laboratory Tests Test 11/07/24 04:07 11/06/24 17:42 11/06/24 17:02 11/06/24 15:24 Range/Units White Blood Count 8.0 4.4-10.8 10^3/uL Red Blood Count 5.07 4.5-5.90 10^6/uL Hemoglobin 15.2 13.5-17.5 g/dL Hematocrit 43.9 # 41.0-53.0 % Mean Corpuscular Volume 86.5 80.0-100.0 fL Mean Corpuscular Hemoglobin 30.0 28.0-32.0 pg Mean Corpuscular Hemoglobin Concent 34.6 32.0-36.0 g/dL Red Cell Distribution Width 13.7 11.8-14.3 % Platelet Count 253 140-450 10^3/uL Mean Platelet Volume 7.8 6.9-10.8 fL Neutrophils (%) (Auto) 61.4 37.0-80.0 % Lymphocytes (%) (Auto) 24.5 10.0-50.0 % Monocytes (%) (Auto) 10.6 0.0-12.0 % Eosinophils (%) (Auto) 2.8 0.0-7.0 % Basophils (%) (Auto) 0.7 0.0-2.0 % Neutrophils # (Auto) 4.9 1.6-8.6 10 ^3/uL Lymphocytes # (Auto) 2.0 0.4-5.4 10 ^3/uL Monocytes # (Auto) 0.8 0-1.3 10 ^3/uL Eosinophils # (Auto) 0.2 0-0.8 10 ^3/uL Basophils # (Auto) 0.1 0-0.2 10 ^3/uL Nucleated Red Blood Cells 0.2 % Sodium Level 138 136-145 mmol/L Potassium Level 3.8 3.5-5.1 mmol/L Chloride Level 103 98-107 mmol/L Carbon Dioxide Level 27 20-31 mmol/L Anion Gap 8 5-15 Blood Urea Nitrogen 31 H 9-23 mg/dL Creatinine 1.50 H 0.700-1.30 mg/dL Glomerular Filtration Rate Calc 56 >90 mL/min BUN/Creatinine Ratio 20.7 H 10.0-20.0 Serum Glucose 164 H 74-106 mg/dL Hemoglobin A1c 10.3 H <5.7 % A1C Calcium Level 9.5 8.7-10.4 mg/dL Total Bilirubin 0.6 0.2-1.0 mg/dL Aspartate Amino Transferase (AST) 16 13-40 U/L Alanine Aminotransferase (ALT) 19 7-40 U/L Alkaline Phosphatase 133 H 46-116 U/L Total Protein 6.8 5.7-8.2 g/dL Albumin 4.1 3.2-4.8 g/dL Triglycerides Level 143 < 150 mg/dL Cholesterol Level 154 < 200 mg/dL LDL Cholesterol 100 H < 100 mg/dL HDL Cholesterol 27 L 40-59 mg/dL Thyroid Stimulating Hormone (TSH) 3.48 0.55-4.78 uIU/mL Urine Color Yellow Yellow Urine Clarity Clear Clear Urine pH 5.5 5.0-9.0 Urine Specific [place] 1.025 1.001-1.035 Urine Protein 1+ H Negative Urine Ketones 2+ H Negative Urine Blood Negative Negative /uL Urine Nitrite Negative Negative Urine Bilirubin Negative Negative Urine Urobilinogen Normal Negative mg/dL Urine Leukocyte Esterase Negative Negative /uL Urine RBC 1 0 - 3 /hpf Urine WBC 1 0 - 3 /hpf Urine Squamous Epithelial Cells Few <5 /hpf Urine Bacteria None seen None Seen /hpf Urine Hyaline Casts Few 0 - 2 /lpf Urine Mucus Few None Seen Urine Glucose 3+ H Normal mg/dL Urine Opiates Screen Neg NEGATIVE Urine Fentanyl Screen Neg NEGATIVE Urine Barbiturates Screen Neg NEGATIVE Urine Phencyclidine Screen Neg NEGATIVE Urine Amphetamines Screen Neg NEGATIVE Urine Benzodiazepines Screen Neg NEGATIVE Urine Cocaine Screen Neg NEGATIVE Urine Cannabinoids Screen Neg NEGATIVE Troponin I High Sensitivity 4 3 L </=54 ng/L Test 11/06/24 14:11 Range/Units White Blood Count 10.3 4.4-10.8 10^3/uL Red Blood Count 5.75 4.5-5.90 10^6/uL Hemoglobin 16.9 13.5-17.5 g/dL Hematocrit 49.7 41.0-53.0 % Mean Corpuscular Volume 86.5 80.0-100.0 fL Mean Corpuscular Hemoglobin 29.4 28.0-32.0 pg Mean Corpuscular Hemoglobin Concent 34.0 32.0-36.0 g/dL Red Cell Distribution Width 13.6 11.8-14.3 % Platelet Count 331 140-450 10^3/uL Mean Platelet Volume 8.1 6.9-10.8 fL Neutrophils (%) (Auto) 73.6 37.0-80.0 % Lymphocytes (%) (Auto) 17.5 10.0-50.0 % Monocytes (%) (Auto) 7.2 0.0-12.0 % Eosinophils (%) (Auto) 1.3 0.0-7.0 % Basophils (%) (Auto) 0.4 0.0-2.0 % Neutrophils # (Auto) 7.6 1.6-8.6 10 ^3/uL Lymphocytes # (Auto) 1.8 0.4-5.4 10 ^3/uL Monocytes # (Auto) 0.7 0-1.3 10 ^3/uL Eosinophils # (Auto) 0.1 0-0.8 10 ^3/uL Basophils # (Auto) 0 0-0.2 10 ^3/uL Nucleated Red Blood Cells 0.1 % D-Dimer, Quantitative 0.38 0.0-0.49 mg/L FEU Sodium Level 136 136-145 mmol/L Potassium Level 4.5 3.5-5.1 mmol/L Chloride Level 99 98-107 mmol/L Carbon Dioxide Level 28 20-31 mmol/L Anion Gap 9 5-15 Blood Urea Nitrogen 39 H 9-23 mg/dL Creatinine 1.83 H 0.700-1.30 mg/dL Glomerular Filtration Rate Calc 44 >90 mL/min BUN/Creatinine Ratio 21.3 H 10.0-20.0 Serum Glucose 252 H 74-106 mg/dL Lactic Acid Level 1.8 0.4-2.0 mmol/L Calcium Level 10.6 H 8.7-10.4 mg/dL Magnesium Level 2.2 1.6-2.6 mg/dL Total Bilirubin 0.7 0.2-1.0 mg/dL Aspartate Amino Transferase (AST) 22 13-40 U/L Alanine Aminotransferase (ALT) 27 7-40 U/L Alkaline Phosphatase 168 H 46-116 U/L Creatine Kinase 95 46-171 U/L Troponin I High Sensitivity 3 L </=54 ng/L Total Protein 7.7 5.7-8.2 g/dL Albumin 4.9 H 3.2-4.8 g/dL Assessment Acute kidney injury hemodynamically mediated likely in the setting of low BP and fall. Ckd II Loss of consciousness; syncope Diabetes uncontrolled Proteinuria Patient has proteinuric kidney disease likely in the setting of uncontrolled diabetes Currently undergoing syncope workup cardiology Obtain urine protein creatinine ratio Obtain ultrasound of the kidney for baseline evaluation Improved glycemic control to achieve A1c less than seven Rest of care as per primary medical team Plan discussed with: Patient LATANYA GIRALDO MD Nov 07, 2024 08:21
--- NOTE | 2024-11-07 08:49 | DVHINCON2 ---
Date Seen: Nov 07, 2024 Referring Physician TUCKER Loyd Reason for Consultation Syncope History of Present Illness This is a 54-year-old man who presented to the emergency room with a chief complaint of syncopal events. The patient reports episodes of dizziness, visual disturbance, and headaches for the past two weeks. He also reports a syncopal event yesterday when he was exiting his truck stating he developed some dizziness and subsequent and unwitnessed loss of consciousness for approximately 1-2 min with reported posterior head trauma without need of interventions. He also reports another syncopal event this past when the patient stood up from a lying position developing dizziness and a subsequent unwitnessed syncopal event lasting 1 min with reported chin trauma without need of medical attention. Denies chest pain, palpitations, diaphoresis, or shortness of breath. He underwent a 12 lead electrocardiogram revealing a sinus tachycardia rhythm without ST segment changes present. Serial troponin levels are negative. States he drinks a gallon of water per day. Denies the use of illicit drugs. Only reports a significant medical history of vuc-pbprngh-ydcyvwohf diabetes mellitus and rare alcohol use. Past Medical History Past medical history reviewed. No other significant than mentioned above. Past Surgical History Cervical spine Family History Family history reviewed. Not significant for cardiovascular disease. Social History Denies the use of illicit drugs or tobacco use. Admits to rare alcohol use. Allergies: Coded Allergies: NO KNOWN ALLERGIES (Unverified , 09/02/18) Home Meds Active Scripts Pantoprazole Sodium Sesquihydr (Protonix) 40 Mg Tab, 40 MG PO DAILY, #30 TAB Prov:NABIL PAVON MD 09/01/24 Amoxicillin & Pot Clavulanate (Amoxicillin/Potassium Cla) 875 Mg Tab, 875 MG PO BID for 10 Days, #20 TAB 0 Refills Prov:MALIK BETTS WO[employer] WASHER FEEDER 12/08/22 Bacitracin (Bacitracin Oint) 1 Applic Ap, 1 APPLIC TOP DAILY for 20 Days, #1 BOTTLE Prov:MATEO MARQUIS MD 02/19/22 Home Meds Home medications reviewed. Current Medications Current Medications Medications (Trade) Dose Ordered Sig/Dino Route PRN Reason Start Time Stop Time Status Last Admin Diagnostic Test (Pha) (Accu-Chek Comfort Curve T) 1 strip IQ4HR 11/07/24 00:00 11/07/24 04:10 Insulin Human Regular (InsuLIN R) IQ4HR SC 11/07/24 00:00 11/07/24 04:15 Dextrose 50 ml UD PRN IV Blood Sugar LESS THAN 60 11/06/24 21:30 Sodium Chloride (Saline Lock Ns) 10 ml Q8HR IV 11/06/24 22:00 11/07/24 06:11 Acetaminophen/ Hydrocodone Bitart ([place] 5/325MG Tab) 1 tab Q4HP PRN PO MODERATE PAIN (4-6 PAIN SCALE) 11/06/24 21:30 11/06/24 23:03 Ondansetron HCl (Zofran) 4 mg Q4HP PRN IV NAUSEA / VOMITING 11/06/24 21:30 Docusate Sodium (Colace Capsule) 100 mg BIDPRN PRN PO FOR CONSTIPATION 11/06/24 21:30 Acetaminophen (Tylenol Tablet) 650 mg Q6HP PRN PO PAIN SCALE 1-3 OR TEMP>100.4 11/06/24 21:30 Famotidine (Pepcid Injection) 20 mg DAILY IV 11/07/24 10:00 Nitroglycerin (Ntrostat Sublingual) 0.4 mg Q5MINP PRN SL FOR CHEST PAIN 11/07/24 00:15 Morphine Sulfate 2 mg Q30M PRN IV FOR CHEST PAIN 11/07/24 00:15 Review of Systems Constitutional: No symptom reported Ears, Nose, & Throat: No symptom reported Eyes: No symptom reported Neurological: Syncope, dizziness, MORRISON, visual disturbances Pulmonary/Respiratory: No symptom reported Cardiovascular: No symptom reported Gastrointestinal: No symptom reported Genitourinary: No symptom reported Musculoskeletal: No symptom reported Skin: No symptom reported Psychiatric: No symptom reported Endocrine: No symptom reported Hemotologic/Lymphatic: No symptom reported Vital Signs Vital Signs Date Time Temp Pulse Resp B/P (MAP) Pulse Ox O2 Delivery O2 Flow Rate FiO2 11/07/24 06:00 97 17 116/80 (92) 95 11/07/24 01:19 Room Air* 0 21 11/06/24 23:00 98.0 98.0 Physical Exam General Appearance: Cooperative. Well developed. Obese. In no acute distress Head Exam: Normal inspection Neck Exam: Normal inspection. Non-tender. Normal alignment Pulmonary/Respiratory: Chest non-tender. Clear bilateral breath sounds Cardiovascular/Chest: Regular rate and rhythm. S1, S2. NSR. No murmurs. No JVD. Peripheral Pulses: 2+ Radial (R). 2+ Radial (L). 2+ Pedal (R). 2+ Pedal (L) Abdominal Exam: Normal bowel sounds. Soft. Nontender. No hepatospenomegaly. No masses Ankle Exam: Negative ankle edema Lower extremities: Negative lower extremity edema Neuro/Mental Status: A&O x4. Coherent Thoughts/Psych: Normal thought pattern. Appropriate mood and affect. Good judgement and insight Appearance: In no acute distress Skin Exam: Normal inspection. Normal color. Warm. Dry Labs/Diagnostic Data Labs Test 11/07/24 04:07 11/06/24 17:42 11/06/24 17:02 11/06/24 14:11 Range/Units White Blood Count 8.0 4.4-10.8 10^3/uL Red Blood Count 5.07 4.5-5.90 10^6/uL Hemoglobin 15.2 13.5-17.5 g/dL Hematocrit 43.9 # 41.0-53.0 % Mean Corpuscular Volume 86.5 80.0-100.0 fL Mean Corpuscular Hemoglobin 30.0 28.0-32.0 pg Mean Corpuscular Hemoglobin Concent 34.6 32.0-36.0 g/dL Red Cell Distribution Width 13.7 11.8-14.3 % Platelet Count 253 140-450 10^3/uL Mean Platelet Volume 7.8 6.9-10.8 fL Neutrophils (%) (Auto) 61.4 37.0-80.0 % Lymphocytes (%) (Auto) 24.5 10.0-50.0 % Monocytes (%) (Auto) 10.6 0.0-12.0 % Eosinophils (%) (Auto) 2.8 0.0-7.0 % Basophils (%) (Auto) 0.7 0.0-2.0 % Neutrophils # (Auto) 4.9 1.6-8.6 10 ^3/uL Lymphocytes # (Auto) 2.0 0.4-5.4 10 ^3/uL Monocytes # (Auto) 0.8 0-1.3 10 ^3/uL Eosinophils # (Auto) 0.2 0-0.8 10 ^3/uL Basophils # (Auto) 0.1 0-0.2 10 ^3/uL Nucleated Red Blood Cells 0.2 % Sodium Level 138 136-145 mmol/L Potassium Level 3.8 3.5-5.1 mmol/L Chloride Level 103 98-107 mmol/L Carbon Dioxide Level 27 20-31 mmol/L Anion Gap 8 5-15 Blood Urea Nitrogen 31 H 9-23 mg/dL Creatinine 1.50 H 0.700-1.30 mg/dL Glomerular Filtration Rate Calc 56 >90 mL/min BUN/Creatinine Ratio 20.7 H 10.0-20.0 Serum Glucose 164 H 74-106 mg/dL Calcium Level 9.5 8.7-10.4 mg/dL Total Bilirubin 0.6 0.2-1.0 mg/dL Aspartate Amino Transferase (AST) 16 13-40 U/L Alanine Aminotransferase (ALT) 19 7-40 U/L Alkaline Phosphatase 133 H 46-116 U/L Total Protein 6.8 5.7-8.2 g/dL Albumin 4.1 3.2-4.8 g/dL Urine Color Yellow Yellow Urine Clarity Clear Clear Urine pH 5.5 5.0-9.0 Urine Specific [place] 1.025 1.001-1.035 Urine Protein 1+ H Negative Urine Ketones 2+ H Negative Urine Blood Negative Negative /uL Urine Nitrite Negative Negative Urine Bilirubin Negative Negative Urine Urobilinogen Normal Negative mg/dL Urine Leukocyte Esterase Negative Negative /uL Urine RBC 1 0 - 3 /hpf Urine WBC 1 0 - 3 /hpf Urine Squamous Epithelial Cells Few <5 /hpf Urine Bacteria None seen None Seen /hpf Urine Hyaline Casts Few 0 - 2 /lpf Urine Mucus Few None Seen Urine Glucose 3+ H Normal mg/dL Urine Opiates Screen Neg NEGATIVE Urine Fentanyl Screen Neg NEGATIVE Urine Barbiturates Screen Neg NEGATIVE Urine Phencyclidine Screen Neg NEGATIVE Urine Amphetamines Screen Neg NEGATIVE Urine Benzodiazepines Screen Neg NEGATIVE Urine Cocaine Screen Neg NEGATIVE Urine Cannabinoids Screen Neg NEGATIVE Troponin I High Sensitivity 4 </=54 ng/L D-Dimer, Quantitative 0.38 0.0-0.49 mg/L FEU Lactic Acid Level 1.8 0.4-2.0 mmol/L Magnesium Level 2.2 1.6-2.6 mg/dL Creatine Kinase 95 46-171 U/L Assessment Syncope and collapse Rule out structural heart disease Rule out orthostatic hypotension Rule out carotid artery stenosis Vcp-ogygoge-fmpwqirre diabetes mellitus, uncontrolled, HgbA1C 10.3 Likely TRELL on CKD Obesity Plan/Recommendation (Dr. Rodriguez) The patient with reported syncopal events and dizziness we will undergo a transthoracic echocardiogram to rule out structural heart disease. At the same time, we will obtain orthostatic vital signs and a carotid duplex to rule out stenosis. UDS is negative. TSH, D-dimer, and electrolytes levels all within normal limits. Head CT unremarkable. Consider a neurological consultation. Continue tight glycemic control. Monitor ECG changes and notify. Thank you for allowing us to participate in this patient's care. Please call if you have any questions or concerns. This medical document was created using an electronic medical record system with voice recognition software and computerized dictation system. Although this document has been carefully reviewed, there might still be some phonetic and typographical errors. Occasional wrong-word or ``sound-alike substitutions may have occurred due to the inherent limitations of voice recognition software. These areas are purely typographical due to imperfections of the software programs and do not reflect any compromise in the patient's medical care. Please read the chart carefully and recognize, using context, where these substitutions have occurred. Plan discussed with: Patient, Other Date of Service: Nov 07, 2024 Billing Provider: PAPA RODRIGUEZ MD Cardiology Common Codes: [id number] INP/OBS CARE (High) CORONA OROZCO WO[employer] WASHER FEEDER Nov 07, 2024 08:49
[2024-11-07 09:12] LABS: Triglycerides 143 mg/dL (< 150)
[2024-11-07 09:14] LABS: Cholesterol 154 mg/dL (< 200)
[2024-11-07 09:18] LABS: HDL Cholesterol 27 mg/dL (40-59); LDL Cholesterol 100 mg/dL (< 100)
[2024-11-07] MEDS: FAMOTIDINE (10MG/ML) 2ML VL IV SCH (10:00)
--- NOTE | 2024-11-07 11:10 | DVHPNRES ---
Progress Note Date Seen: Nov 07, 2024 Resident Creating Document: JANE MITCHELL RESIDENT Medical Necessity Reason Pt with a Central, PICC or Fol: No Subjective Review of Systems Patient is 64 years old male with past medical history of diabetes mellitus came with a complaint of syncope. As per patient patient had a blackout event yesterday and he completely blacked out and do not remember what happened. Patient also reported that he was feeling dizzy before he blacked out. Patient fell on his back when he blacked out and hit his head on the back of his head. he also reported he had 2 more episodes of black out 2 days before. patient was feeling dizzy before he passed out. Patient also reported that he has been h feeling dizzy bolus 1 month. Patient reported that he feels dizzy when he tries to get up from the bed or tries to stand up from sitting position. Patient also reported at times he feels there is a change in vision and he sees black and white thanks. Patient denied any chest pain, shortness of breath, palpitation, acute diarrhea, acute joint pain or swelling, acute dysarthria. Initial lab workup revealed elevated creatinine 1.83, elevated BUN 31, GFR low 56, HGB A1c 10.3.. Patient was negative for troponin I, CPK 95, UDS negative, D-dimer 0.38, units is negative. CT brain-No evidence of acute intracranial abnormality. CXR- No acute disease. Carotid Doppler-No hemodynamically significant stenosis noted in the right or left carotid system. Renal Ultrasound-Normal renal ultrasound. PMH-diabetes mellitus type 2 PSH- cervical spine surgery Allergy- NKDA Personal History/ Social History- denies smoking or alcoholism or drug abuse, lives at home Patient was seen today at the bedside. Cardiovascular- deny acute chest pain or shortness of breath or cough or palpitation Respiratory- denies cough or short of breath or wheezing Gastrointestinal- denies any rectal bleeding, nausea or vomiting Musculoskeletal-denies acute joint swelling or tenderness or redness Neurological- denies acute dysarthria, dysphagia, Psychiatry- denies depression or SI or HI Skin- denies acute rash or purpura Patient was seen today for clinical evaluation. Labs and chart reviewed. Patient is seen by Cardiology, recommendation reviewed and appreciated. CT brain-No evidence of acute intracranial abnormality. CXR- No acute disease. Pending carotid Doppler report., ordered echo 2D for further evaluation and care. UDS negative. Due for orthostatic vitals.Lying: -141/95 BP 104 HR, Sittin/81 BP, 109 HR, Standing:, 98/66 BP, 106 HR. Significant for orthostatic hypotension. Objective vital signs Vital Sign Date Time Temp Pulse Resp B/P (MAP) Pulse Ox O2 Delivery O2 Flow Rate FiO2 11/07/24 06:00 97 17 116/80 (92) 95 11/07/24 01:19 Room Air* 0 21 11/06/24 23:00 98.0 98.0 Total Intake and Output 11/06/24 11/06/24 11/07/24 15:00 23:00 07:00 Intake Total 1000 ml Balance 1000 ml medications Current Medications Medications Dose Ordered Sig/Dino Route Start Time Stop Time Status Last Admin Dose Admin Diagnostic Test (Pha) 1 strip IQ4HR 11/07/24 00:00 11/07/24 08:00 1 STRIP Insulin Human Regular IQ4HR SC 11/07/24 00:00 11/07/24 08:00 3 UNITS Dextrose 50 ml UD PRN IV 11/06/24 21:30 Sodium Chloride 10 ml Q8HR IV 11/06/24 22:00 11/07/24 06:11 10 ML Acetaminophen/ Hydrocodone Bitart 1 tab Q4HP PRN PO 11/06/24 21:30 11/06/24 23:03 1 TAB Ondansetron HCl 4 mg Q4HP PRN IV 11/06/24 21:30 Docusate Sodium 100 mg BIDPRN PRN PO 11/06/24 21:30 Acetaminophen 650 mg Q6HP PRN PO 11/06/24 21:30 Famotidine 20 mg DAILY IV 11/07/24 10:00 Nitroglycerin 0.4 mg Q5MINP PRN SL 11/07/24 00:15 Morphine Sulfate 2 mg Q30M PRN IV 11/07/24 00:15 Examination General examination- awake, alert, oriented, conversive HEENT- PEERLA, no acute nasal discharge Cardiovascular- S1-S2 audible, rate and rhythm regular, no murmur Respiratory- CTAB, no wheeze or rhonchi Gastrointestinal-nontender, bowel sound+. Nondistended Musculoskeletal-no acute joint swelling or tenderness or redness# extremity- left after extremity weakness previous neck surgery or cervical spine surgery Neurological- cranial nerves intact, no acute dysarthria or dysphagia Psychiatry- denies depression or SI or HI Skin- no acute rash or purpura laboratory and microbiology Laboratory Tests 11/07/24 04:07 Test 11/07/24 04:07 Range/Units Serum Glucose 164 H 74-106 mg/dL Problem List/Assessment/Plan Problem List/Assessment/Plan Acute syncope likely due to orthostatic hypotension Rule out cardiac causes Diabetes mellitus type 2 TRELL on 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 Goals of care/advance care planning; FULL CODE; discussed with the patient >15 minutes PUD prophylaxis: Famotidine DVT prophylaxis: Plan discussed with Dr. Andrea, nursing staff, patient Total time spent on patient evaluation, chart review, assessment and plan, discussion discussion >30 minutes Plan discussed with: Patient Plan discussed with: Patient, Other (RN) My Orders My Orders Orders - JANE MITCHELL Procedure Category Date Status Time Echo 2d Mode Cardiac US 11/07/24 Logged DOP 10:50 Urine Sodium LAB 11/07/24 Logged 10:51 Date of Service: Nov 07, 2024 Billing Provider: RACHEL ANDREA MD Common Visit Codes: [id number] INP/OBS CARE(HIGH) JANE MITCHELL Nov 07, 2024 11:10 RACHEL ANDREA MD Nov 09, 2024 20:48
--- NOTE | 2024-11-07 12:09 | DVH ---
US KIDNEY HISTORY: benita COMPARISON: None TECHNIQUE: Transverse and longitudinal grayscale and color doppler images were obtained of the kidney s and bladder. FINDINGS: Right kidney: Size: 10 cm Cortical thickness: Normal Echogenicity: Normal Stones: None Masses: None Hydronephrosis: None Ureters: Not well visualized. Other: None Left kidney: Size: 10.5 cm Cortical thickness: Normal Echogenicity: Normal Stones: None Masses: None Hydronephrosis: None Ureters: Not well visualized. Other: None Bladder: Normal Other: None. IMPRESSION: Normal renal ultrasound.
--- NOTE | 2024-11-07 12:25 | DVH ---
Carotid Duplex Clinical History: Syncope Comparison: None Technique: Duplex Doppler evaluation of the extracranial carotid and vertebral arteries including color Doppler and spectral/pulsed waveform analysis was performed. Findings: RIGHT SIDE: The peak systolic velocities are 78 cm/s in the CCA, 76 cm/s in the ICA. The ICA/CCA ratio is 1.0. The external carotid artery is patent with peak systolic velocity of 88 cm/s proximally. There is appropriate antegrade flow in the right vertebral artery. LEFT SIDE: The peak systolic velocities are 92 cm/s in the CCA, 103 cm/s in the ICA. The ICA/CCA ratio is 1.1. The external carotid artery is patent with peak systolic velocity of 83 cm/s proximally. There is appropriate antegrade flow in the left vertebral artery. IMPRESSION: 1. No hemodynamically significant stenosis noted in the right carotid system. 2. No hemodynamically significant stenosis noted in the left carotid system. Reference: Radiology 2003; 229:340-346 Normal ICA PSV is <125 cm/sec and no plaque or intimal thickening is visible sonographically additional criteria include ICA/CCA PSV ratio <2.0 and ICA EDV <40 cm/sec <50% ICA stenosis ICA PSV is <125 cm/sec and plaque or intimal thickening is visible sonographically additional criteria include ICA/CCA PSV ratio <2.0 and ICA EDV <40 cm/sec 50-69% ICA stenosis ICA PSV is 125-230 cm/sec and plaque is visible sonographically additional criteria include ICA/CCA PSV ratio of 2.0-4.0 and ICA EDV of 40-100 cm/sec 70% ICA stenosis but less than near occlusion ICA PSV is >230 cm/sec and visible plaque and luminal narrowing are seen at nicole-scale and color Dopp ler ultrasound (the higher the Doppler parameters lie above the threshold of 230 cm/sec, the greater the likelihood of severe disease) additional criteria include ICA/CCA PSV ratio >4 and ICA EDV >100 cm/sec
[2024-11-07 12:50] VITALS: BP 141/99; PULSE 112; RESP 17; TEMP 97.4; O2SAT 92
[2024-11-07 12:51] VITALS: BP 141/99; PULSE 112; RESP 17; TEMP 97.4; O2SAT 92
[2024-11-07] MEDS: SODIUM CHLORIDE 0.9% 1,000 ML IV SCH ×2 (14:00→17:58)
[2024-11-07] MEDS: SODIUM CHLORIDE 0.9% 1,000 ML IV ONE (14:30)
[2024-11-07 17:00] VITALS: BP 124/75; PULSE 105; RESP 16; TEMP 98; O2SAT 93
[2024-11-07 20:00] VITALS: PULSE 111
[2024-11-07 21:00] VITALS: BP_SYST 116; BP_SYST 119; BP_SYST 90; BP_DIAS 61; BP_DIAS 78; BP_DIAS 88; PULSE 107; PULSE 110; PULSE 121; RESP 18; TEMP 97.8; O2SAT 93
--- NOTE | 2024-11-07 21:55 | DVHSR ---
APPROVED REPORT EXAM: Two-dimensional and M-mode echocardiogram with Doppler and color Doppler. Blood Pressure: 116/80 mmHg INDICATION Syncope RISK FACTORS Height: 73, Weight: 234 DIMENSIONS LVDd5.3 (3.8-5.7cm)LA (2D)3.7 (1.9-4.0cm)Aortic Root3.8 (2.0-3.7cm) LVDs3.7 (2.5-4.0cm)LA (MM) (1.9-4.0cm)Aortic Cusp Exc (1.5-2.0cm) EF (%) 58.0 (55-70%)Rt. Atrium3.8 (1.9-4.0cm)Asc. Aorta cm IVSd0.9 (0.7-1.1cm)RV (D) (1.8-2.4cm) PWd1.0 (0.7-1.1cm) Mitral Valve MitralMitral Stenosis E/A ratio0.02D MVAcm2 Aortic Valve Aortic ValveAortic Stenosis V10.95m/Beverly Mean GR.3mmHg V21.09m/Beverly Peak GR.5mmHg LVOT Diameter2.5 (1.8-2.4cm)Doppler AVA4.28cm2 Pulmonic Valve V21.02m/s LEFT VENTRICLE The left ventricle is normal size. There is normal left ventricular wall thickness. Left ventricular systolic function is mildly reduced, LVEF is 40-45%. There is global hypokinesis of the left ventricle. RIGHT VENTRICLE The right ventricle is not well visualized. The right ventricular systolic function is normal. ATRIA The left atrial size is normal. The right atrium size is normal. PULMONIC VALVE The pulmonic valve is not well visualized. TRICUSPID VALVE The tricuspid valve is not well visualized. No tricuspid regurgitation. AORTIC VALVE The aortic valve opens well. No aortic regurgitation is present. GREAT VESSELS Aortic sinus of Valsalva are mildly dilated. PERICARDIAL EFFUSION No evidence of pericardial effusion. Other Information Technically limited study due to body habitus. Conclusion The left ventricle is normal size. There is normal left ventricular wall thickness. Left ventricular systolic function is mildly reduced, LVEF is 45-50%. There is global hypokinesis of the left ventricl e. The right ventricular systolic function is normal. The left and right atrial size is normal. No significant valvular abnormalities. No evidence of pericardial effusion.
[2024-11-08] VITALS (8 sets, daily range): BP systolic 92–145; BP diastolic 59–99; PULSE 95–118; RESP 18–20; TEMP 97.8–98.3; O2SAT 93–95
[2024-11-08 06:27] LABS: Calcium 9.1 mg/dL (8.7-10.4); Chloride 107 mmol/L (98-107); Potassium 3.5 mmol/L (3.5-5.1); Sodium 141 mmol/L (136-145)
[2024-11-08 06:28] LABS: Anion Gap 6 (5-15); Carbon Dioxide 28 mmol/L (20-31)
[2024-11-08 06:34] LABS: Glucose 127 mg/dL (74-106)
[2024-11-08 06:54] LABS: Basophils # (auto) 0.1 10 ^3/uL (0-0.2); Basophils % (auto) 1.1 % (0.0-2.0); Eosinophils # (auto) 0.2 10 ^3/uL (0-0.8); Eosinophils % (auto) 3.8 % (0.0-7.0); Hematocrit 41.4 % (41.0-53.0); Hemoglobin 14.2 g/dL (13.5-17.5); Lymphocytes # (auto) 1.9 10 ^3/uL (0.4-5.4); Lymphocytes % (auto) 34.1 % (10.0-50.0); Mean Corpuscular Hemoglobin 29.7 pg (28.0-32.0); Mean Corpuscular Hgb Conc. 34.3 g/dL (32.0-36.0); Mean Corpuscular Volume 86.6 fL (80.0-100.0); Monocytes # (auto) 0.6 10 ^3/uL (0-1.3); Monocytes % (auto) 10.1 % (0.0-12.0); Neutrophils # (auto) 2.9 10 ^3/uL (1.6-8.6); Neutrophils % (auto) 50.9 % (37.0-80.0); Nucleated Red Blood Cells % 0.2 %; Platelet Count (auto) 256 10^3/uL (140-450); Red Blood Cells 4.78 10^6/uL (4.5-5.90); Red Cell Distribution Width 13.5 % (11.8-14.3); White Blood Cell 5.6 10^3/uL (4.4-10.8)
[2024-11-08 07:03] LABS: BUN/Creatinine Ratio 16.3 (10.0-20.0); Blood Urea Nitrogen 20 mg/dL (9-23)
--- NOTE | 2024-11-08 13:13 | DVHPN2 ---
Consult Progress Note Date Seen: Nov 08, 2024 Subjective Review of Systems: CVS:Normal, RESPIRATORY:Normal, NEURO:Abnormal Other Systems: C/o dizziness with positional changes Objective vital signs Vital Sign Date Time Temp Pulse Resp B/P (MAP) Pulse Ox O2 Delivery O2 Flow Rate FiO2 11/08/24 09:39 118 20 92/59 (70) 95 11/08/24 08:30 98.3 98.3 11/08/24 08:00 Room Air* 0 21 Total Intake and Output 11/07/24 11/07/24 11/08/24 15:00 23:00 07:00 Intake Total 1250 ml 2025 ml Balance 1250 ml 2025 ml medications Current Medications Medications Dose Ordered Sig/Dino Route Start Time Stop Time Status Last Admin Dose Admin Diagnostic Test (Pha) 1 strip IQ4HR 11/07/24 00:00 11/08/24 12:16 1 STRIP Insulin Human Regular IQ4HR SC 11/07/24 00:00 11/08/24 12:17 3 UNITS Dextrose 50 ml UD PRN IV 11/06/24 21:30 Sodium Chloride 10 ml Q8HR IV 11/06/24 22:00 11/08/24 12:18 10 ML Acetaminophen/ Hydrocodone Bitart 1 tab Q4HP PRN PO 11/06/24 21:30 11/06/24 23:03 1 TAB Ondansetron HCl 4 mg Q4HP PRN IV 11/06/24 21:30 Docusate Sodium 100 mg BIDPRN PRN PO 11/06/24 21:30 Acetaminophen 650 mg Q6HP PRN PO 11/06/24 21:30 Famotidine 20 mg DAILY IV 11/07/24 10:00 11/08/24 09:20 20 MG Nitroglycerin 0.4 mg Q5MINP PRN SL 11/07/24 00:15 Morphine Sulfate 2 mg Q30M PRN IV 11/07/24 00:15 Sodium Chloride 1,000 ml @ 150 mls/hr Q6H40M IV 11/07/24 17:00 11/08/24 06:36 150 MLS/HR Examination: LUNGS:Normal, CVS:Normal, NEURO:Normal laboratory and microbiology Laboratory Tests 11/08/24 04:33 Test 11/08/24 04:33 Range/Units Serum Glucose 127 H 74-106 mg/dL Problem List/Assessment/Plan Problem List/Assessment/Plan Syncope and collapse Chronic compensated HFmrEF, newly diagnosed Significantly positive orthostatic hypotension Glh-stmkygz-xxjulgygr diabetes mellitus, uncontrolled, HgbA1C 10.3 Likely TRELL on CKD Obesity Plan/Recommendation (Dr. Rodriguez) The patient with reported syncopal events and dizziness with positional changes underwent a transthoracic echocardiogram revealing an LVEF of 40-45% with global hypokinesis of the left ventricle for which he will be scheduled for a cardiolite stress test to rule out coronary ischemia. At the same time, he was found with positive orthostatic vital signs (Lyin/90 HR 97, Sitting 117/83 HR 104, Standing 78/48 HR 118) for which he received NS x 1L with subsequent orthostatic measurements (Lyin/95 HR 104, Sittin/81 HR 109, Standin/66 HR 106). The patient will be initiated on midodrine for hemodynamic support as well as JUAN DANIEL stockings. Encourage oral fluid intake as tolerated. Head CT, carotid duplex, UDS, TSH, D-dimer, and electrolytes levels all within normal limits. Continue tight glycemic control. Monitor ECG changes and notify. Thank you for allowing us to participate in this patient's care. Please call if you have any questions or concerns. This medical document was created using an electronic medical record system with voice recognition software and computerized dictation system. Although this document has been carefully reviewed, there might still be some phonetic and typographical errors. Occasional wrong-word or ``sound-alike substitutions may have occurred due to the inherent limitations of voice recognition software. These areas are purely typographical due to imperfections of the software programs and do not reflect any compromise in the patient's medical care. Please read the chart carefully and recognize, using context, where these substitutions have occurred. Plan discussed with: Patient, Other Date of Service: Nov 08, 2024 Billing Provider: ORQUIDEA HENDRIX MD Cardiology Common Codes: [id number] [facility] C[facility](High MONTIELCORONA DEVINE [facility] Nov 08, 2024 13:12
[2024-11-08] MEDS: MIDODRINE HCL 10 MG TAB PO ONE (14:11)
[2024-11-08] MEDS ORDERED: SODIUM CHLORIDE 0.9% 1,000 ML IV SCH ×2 (15:15→15:45)
--- NOTE | 2024-11-08 15:17 | DVHPNRES ---
Progress Note Date Seen: Nov 08, 2024 Resident Creating Document: JANE MITCHELL RESIDENT Medical Necessity Reason Pt with a Central, PICC or Fol: No Subjective Review of Systems Patient is 64 years old male with past medical history of diabetes mellitus came with a complaint of syncope. As per patient patient had a blackout event yesterday and he completely blacked out and do not remember what happened. Patient also reported that he was feeling dizzy before he blacked out. Patient fell on his back when he blacked out and hit his head on the back of his head. he also reported he had 2 more episodes of black out 2 days before. patient was feeling dizzy before he passed out. Patient also reported that he has been h feeling dizzy bolus 1 month. Patient reported that he feels dizzy when he tries to get up from the bed or tries to stand up from sitting position. Patient also reported at times he feels there is a change in vision and he sees black and white thanks. Patient denied any chest pain, shortness of breath, palpitation, acute diarrhea, acute joint pain or swelling, acute dysarthria. Initial lab workup revealed elevated creatinine 1.83, elevated BUN 31, GFR low 56, HGB A1c 10.3.. Patient was negative for troponin I, CPK 95, UDS negative, D-dimer 0.38, units is negative. CT brain-No evidence of acute intracranial abnormality. CXR- No acute disease. Carotid Doppler-No hemodynamically significant stenosis noted in the right or left carotid system. Renal Ultrasound-Normal renal ultrasound. PMH-diabetes mellitus type 2 PSH- cervical spine surgery Allergy- NKDA Personal History/ Social History- denies smoking or alcoholism or drug abuse, lives at home Patient was seen today at the bedside. Cardiovascular- deny acute chest pain or shortness of breath or cough or palpitation Respiratory- denies cough or short of breath or wheezing Gastrointestinal- denies any rectal bleeding, nausea or vomiting Musculoskeletal-denies acute joint swelling or tenderness or redness Neurological- denies acute dysarthria, dysphagia, Psychiatry- denies depression or SI or HI Skin- denies acute rash or purpura Patient was seen today for clinical evaluation. Labs and chart reviewed. Patient is seen by Cardiology, recommendation reviewed and appreciated. P atient reported feeling better today..Echo 2D revealed- The left ventricle is normal size. Left ventricular systolic function is mildly reduced, LVEF is 40- 45%. There is global hypokinesis of the left ventricle. Patient with lower trend of blood pressure with orthostatic hypotension. Ordered midodrine 10 mg p.o. t.i.d.. Started normal saline IV 150 mL/hour as per Dr. Peres's recommendation. Objective vital signs Vital Sign Date Time Temp Pulse Resp B/P (MAP) Pulse Ox O2 Delivery O2 Flow Rate FiO2 11/08/24 13:30 97.8 99 20 119/78 (92) 95 97.8 11/08/24 08:00 Room Air* 0 21 Total Intake and Output 11/07/24 11/07/24 11/08/24 15:00 23:00 07:00 Intake Total 1250 ml 2025 ml Balance 1250 ml 2025 ml medications Current Medications Medications Dose Ordered Sig/Dino Route Start Time Stop Time Status Last Admin Dose Admin Diagnostic Test (Pha) 1 strip IQ4HR 11/07/24 00:00 11/08/24 12:16 1 STRIP Insulin Human Regular IQ4HR SC 11/07/24 00:00 11/08/24 12:17 3 UNITS Dextrose 50 ml UD PRN IV 11/06/24 21:30 Sodium Chloride 10 ml Q8HR IV 11/06/24 22:00 11/08/24 12:18 10 ML Acetaminophen/ Hydrocodone Bitart 1 tab Q4HP PRN PO 11/06/24 21:30 11/06/24 23:03 1 TAB Ondansetron HCl 4 mg Q4HP PRN IV 11/06/24 21:30 Docusate Sodium 100 mg BIDPRN PRN PO 11/06/24 21:30 Acetaminophen 650 mg Q6HP PRN PO 11/06/24 21:30 Famotidine 20 mg DAILY IV 11/07/24 10:00 11/08/24 09:20 20 MG Nitroglycerin 0.4 mg Q5MINP PRN SL 11/07/24 00:15 Morphine Sulfate 2 mg Q30M PRN IV 11/07/24 00:15 Sodium Chloride 1,000 ml @ 150 mls/hr Q6H40M IV 11/07/24 17:00 11/08/24 06:36 150 MLS/HR Midodrine 10 mg TID@0600,1200,1800 PO 11/08/24 18:00 Examination General examination- awake, alert, oriented, conversant HEENT- PEERLA, no acute nasal discharge Cardiovascular- S1-S2 audible, rate and rhythm regular, no murmur Respiratory- CTAB, no wheeze or rhonchi Gastrointestinal-nontender, bowel sound+. Nondistended Musculoskeletal-no acute joint swelling or tenderness or redness# extremity- left after extremity weakness previous neck surgery or cervical spine surgery Neurological- cranial nerves intact, no acute dysarthria or dysphagia Psychiatry- denies depression or SI or HI Skin- no acute rash or purpura laboratory and microbiology Laboratory Tests 11/08/24 04:33 Test 11/08/24 04:33 Range/Units Serum Glucose 127 H 74-106 mg/dL Problem List/Assessment/Plan Problem List/Assessment/Plan Acute syncope likely due to orthostatic hypotension Chronic compensated HFmrEF, newly diagnosed Rule out cardiac causes Diabetes mellitus type 2, uncontrolled, HGB A1c 10.3 TRELL on CKD stage 3 likely due to VMN OBESITY, BMI 31.6 Echo 2D revealed- The left ventricle is normal size. Left ventricular systolic function is mildly reduced, LVEF is 40-45%. There is global hypokinesis of the left ventricle. Ordered orthostatic vitals-for orthostatic hypotension Continue IV normal saline 100 mL/hour Continuously sliding scale as prescribed Famotidine 20 mg IV b.i.d. Continue midodrine 10 mg t.i.d. Goals of care/advance care planning; FULL CODE; discussed with the patient >15 minutes PUD prophylaxis: Famotidine DVT prophylaxis: Plan discussed with Dr. Peres, nursing staff, patient Total time spent on patient evaluation, chart review, assessment and plan, discussion discussion >30 minutes Plan discussed with: Patient Plan discussed with: Patient, Other (RN) My Orders My Orders Orders - JANE MITCHELL Procedure Category Date Status Time Sodium Chloride 0.9% PHA 11/07/24 In Process 17:00 NS PHA 11/08/24 Transmitted 15:15 Date of Service: Nov 08, 2024 Billing Provider: MARINE PERES MD Common Visit Codes: [id number] INP/OBS CARE(HIGH) Secondary Visit Codes: [id number] CARE PLAN 30 MINUTES JANE MITCHELL Nov 08, 2024 15:17 MARINE PERES MD Nov 08, 2024 19:33
[2024-11-08] MEDS: SODIUM CHLORIDE 0.9% 1,000 ML IV SCH (15:45)
--- NOTE | 2024-11-08 15:47 | DVHPN2 ---
Progress Note Date Seen: Nov 08, 2024 Medical Necessity Reason Pt with a Central, PICC or Fol: No Subjective Patient reports: Other (Positive dizziness) Objective vital signs Vital Sign Date Time Temp Pulse Resp B/P (MAP) Pulse Ox O2 Delivery O2 Flow Rate FiO2 11/08/24 13:30 97.8 99 20 119/78 (92) 95 97.8 11/08/24 08:00 Room Air* 0 21 Total Intake and Output 11/07/24 11/07/24 11/08/24 15:00 23:00 07:00 Intake Total 1250 ml 2025 ml Balance 1250 ml 2025 ml medications Current Medications Medications Dose Ordered Sig/Dino Route Start Time Stop Time Status Last Admin Dose Admin Diagnostic Test (Pha) 1 strip IQ4HR 11/07/24 00:00 11/08/24 12:16 1 STRIP Insulin Human Regular IQ4HR SC 11/07/24 00:00 11/08/24 12:17 3 UNITS Dextrose 50 ml UD PRN IV 11/06/24 21:30 Sodium Chloride 10 ml Q8HR IV 11/06/24 22:00 11/08/24 12:18 10 ML Acetaminophen/ Hydrocodone Bitart 1 tab Q4HP PRN PO 11/06/24 21:30 11/06/24 23:03 1 TAB Ondansetron HCl 4 mg Q4HP PRN IV 11/06/24 21:30 Docusate Sodium 100 mg BIDPRN PRN PO 11/06/24 21:30 Acetaminophen 650 mg Q6HP PRN PO 11/06/24 21:30 Famotidine 20 mg DAILY IV 11/07/24 10:00 11/08/24 09:20 20 MG Nitroglycerin 0.4 mg Q5MINP PRN SL 11/07/24 00:15 Morphine Sulfate 2 mg Q30M PRN IV 11/07/24 00:15 Midodrine 10 mg TID@0600,1200,1800 PO 11/08/24 18:00 laboratory and microbiology Laboratory Tests 11/08/24 04:33 Test 11/08/24 04:33 Range/Units Serum Glucose 127 H 74-106 mg/dL Problem List/Assessment/Plan Problem List/Assessment/Plan Acute kidney injury hemodynamically mediated likely in the setting of low BP and fall. Ckd II Loss of consciousness; syncope Diabetes uncontrolled Proteinuria Recommendations on ivf Renal function better I will sign off this case please reconsult if needed Plan discussed with: Patient My Orders My Orders Orders - EMILIANO MA MD Procedure Category Date Status Time NS PHA 11/08/24 Transmitted 15:45 EMILIANO MA MD Nov 08, 2024 15:47
[2024-11-08] MEDS: MIDODRINE HCL 10 MG TAB PO SCH (18:01)
[2024-11-09] VITALS (8 sets, daily range): BP systolic 83–155; BP diastolic 45–101; PULSE 89–100; RESP 18; TEMP 97.6–98.2; O2SAT 91–95
[2024-11-09 10:28] LABS: Anion Gap 8 (5-15); Carbon Dioxide 30 mmol/L (20-31); Chloride 104 mmol/L (98-107); Sodium 142 mmol/L (136-145)
[2024-11-09 10:29] LABS: Calcium 9.6 mg/dL (8.7-10.4)
[2024-11-09 10:46] LABS: BUN/Creatinine Ratio 9.7 (10.0-20.0); Blood Urea Nitrogen 11 mg/dL (9-23); Glucose 150 mg/dL (74-106); Potassium 4.4 mmol/L (3.5-5.1)
[2024-11-09] MEDS: REGADENOSON 0.4 MG/5 ML SYRG IV ONE ×2 (12:15→12:34)
--- NOTE | 2024-11-09 13:48 | DVHPNRES ---
Progress Note Date Seen: Nov 09, 2024 Resident Creating Document: JANE MITCHELL RESIDENT Medical Necessity Reason Pt with a Central, PICC or Fol: No Subjective Review of Systems Patient is 64 years old male with past medical history of diabetes mellitus came with a complaint of syncope. As per patient patient had a blackout event yesterday and he completely blacked out and do not remember what happened. Patient also reported that he was feeling dizzy before he blacked out. Patient fell on his back when he blacked out and hit his head on the back of his head. he also reported he had 2 more episodes of black out 2 days before. patient was feeling dizzy before he passed out. Patient also reported that he has been h feeling dizzy bolus 1 month. Patient reported that he feels dizzy when he tries to get up from the bed or tries to stand up from sitting position. Patient also reported at times he feels there is a change in vision and he sees black and white thanks. Patient denied any chest pain, shortness of breath, palpitation, acute diarrhea, acute joint pain or swelling, acute dysarthria. Initial lab workup revealed elevated creatinine 1.83, elevated BUN 31, GFR low 56, HGB A1c 10.3.. Patient was negative for troponin I, CPK 95, UDS negative, D-dimer 0.38, units is negative. CT brain-No evidence of acute intracranial abnormality. CXR- No acute disease. Carotid Doppler-No hemodynamically significant stenosis noted in the right or left carotid system. Renal Ultrasound-Normal renal ultrasound. PMH-diabetes mellitus type 2 PSH- cervical spine surgery Allergy- NKDA Personal History/ Social History- denies smoking or alcoholism or drug abuse, lives at home Patient was seen today at the bedside. Cardiovascular- deny acute chest pain or shortness of breath or cough or palpitation Respiratory- denies cough or short of breath or wheezing Gastrointestinal- denies any rectal bleeding, nausea or vomiting Musculoskeletal-denies acute joint swelling or tenderness or redness Neurological- denies acute dysarthria, dysphagia, Psychiatry- denies depression or SI or HI Skin- denies acute rash or purpura Patient was seen today for clinical evaluation. Labs and chart reviewed. Patient with a persistent orthostatic hypotension. Ordered fludrocortisone 0.1 mg p.o. daily. Bladder scan revealed 292 mL of post voided urine. Ordered ultrasound of the bladder and prostate to rule out benign enlargement of the prostate. Discontinued IV normal saline. Objective vital signs Vital Sign Date Time Temp Pulse Resp B/P (MAP) Pulse Ox O2 Delivery O2 Flow Rate FiO2 11/09/24 13:00 96 18 140/85 (103) 93 11/09/24 13:00 98.0 98.0 11/09/24 08:00 Room Air* 0 21 Total Intake and Output 11/08/24 11/08/24 11/09/24 15:00 23:00 07:00 Intake Total 1000 ml 1750 ml Balance 1000 ml 1750 ml medications Current Medications Medications Dose Ordered Sig/Dino Route Start Time Stop Time Status Last Admin Dose Admin Diagnostic Test (Pha) 1 strip IQ4HR 11/07/24 00:00 11/09/24 12:08 1 STRIP Insulin Human Regular IQ4HR SC 11/07/24 00:00 11/09/24 12:09 2 UNITS Dextrose 50 ml UD PRN IV 11/06/24 21:30 Sodium Chloride 10 ml Q8HR IV 11/06/24 22:00 11/09/24 12:29 10 ML Acetaminophen/ Hydrocodone Bitart 1 tab Q4HP PRN PO 11/06/24 21:30 11/06/24 23:03 1 TAB Ondansetron HCl 4 mg Q4HP PRN IV 11/06/24 21:30 Docusate Sodium 100 mg BIDPRN PRN PO 11/06/24 21:30 Acetaminophen 650 mg Q6HP PRN PO 11/06/24 21:30 Famotidine 20 mg DAILY IV 11/07/24 10:00 11/09/24 08:45 20 MG Nitroglycerin 0.4 mg Q5MINP PRN SL 11/07/24 00:15 Morphine Sulfate 2 mg Q30M PRN IV 11/07/24 00:15 Midodrine 10 mg TID@0600,1200,1800 PO 11/08/24 18:00 11/09/24 12:09 10 MG Fludrocortisone Acetate 0.1 mg DAILY PO 11/10/24 10:00 laboratory and microbiology Laboratory Tests 11/09/24 09:54 11/08/24 04:33 Test 11/09/24 09:54 Range/Units Serum Glucose 150 H 74-106 mg/dL Problem List/Assessment/Plan Problem List/Assessment/Plan Acute syncope likely due to orthostatic hypotension Suspected autonomic neuropathy leading to orthostatic hypotension and suspected retention of urine, rule out BP Chronic compensated HFmrEF, newly diagnosed Rule out cardiac causes Diabetes mellitus type 2, uncontrolled, HGB A1c 10.3 TRELL on CKD stage 3 likely due to VMN OBESITY, BMI 31.6 Echo 2D revealed- The left ventricle is normal size. Left ventricular systolic function is mildly reduced, LVEF is 40-45%. There is global hypokinesis of the left ventricle. orthostatic vitals-positive for orthostatic hypotension Continue fludrocortisone 0.1 mg p.o. daily Continuously sliding scale as prescribed Famotidine 20 mg IV b.i.d. Continue midodrine 10 mg t.i.d. Goals of care/advance care planning; FULL CODE; discussed with the patient >15 minutes PUD prophylaxis: Famotidine DVT prophylaxis: Patient ambulating Plan discussed with Dr. Peres, nursing staff, patient Total time spent on patient evaluation, chart review, assessment and plan, discussion discussion >30 minutes Plan discussed with: Patient Plan discussed with: Patient (RN), Other My Orders My Orders Orders - JANE MITCHELL Procedure Category Date Status Time Fludrocortisone PHA 11/10/24 In Process Tablet (Florinef 10:00 Date of Service: Nov 09, 2024 Billing Provider: MARINE PERES MD Common Visit Codes: [id number] INP/OBS CARE(HIGH) Secondary Visit Codes: [id number] CARE PLAN 30 MINUTES JANE MITCHELL Nov 09, 2024 13:48 MARINE PERES MD Nov 09, 2024 20:40
[2024-11-09] MEDS: FLUDROCORTISONE ACETATE 0.1 MG TAB PO ONE (15:05)
--- NOTE | 2024-11-09 15:14 | DVH ---
RENAL ULTRASOUND CLINICAL HISTORY: retention of urine post voidal 292 TECHNIQUE: Multiple ultrasound images of the kidneys and bladder were obtained. COMPARISON: US KIDNEY on DOS: 11/07/24 FINDINGS: The right kidney measures 9.7 cm in length. The left kidney measures 10.0 cm. The kidneys demonstrate appropriate echotexture without evidence of a discrete renal lesion, nephrolithiasis or hydronephros is. In the bladder appears within normal limits with prevoid volume measuring 440 cc. The postvoid resid ual is 194 cc. IMPRESSION: 1. Unremarkable renal ultrasound. HS:Y
--- NOTE | 2024-11-09 16:22 | DVHINCON2 ---
Date of service: Nov 09, [address] Wetzel Reason for Consultation Syncope History of Present Illness Mr. Gutierrez is a 54 years old right-handed gentleman with a history of diabetes, obesity, he was taken to the [facility] on 11/06/2024 with a chief company of dizziness and syncopal events. At this time, he is alert and fully oriented, he provided the following history Since 10/2024, he has progressive brief spells of dizziness/lightheadedness, blurry vision and feeling of passing out when he was standing up, improved when he sits down or lay down, on 11/06/2024, 2 times when he was standing up, with dizziness/blurred vision, he passed out for seconds of time, on waking up, he knew he had passing out, and he recognized his family member, the time and the place. In the hospital, the patient was showed evidence of dehydration, however he still has dizziness on getting up after he has been hydrated. He has never had similar problem before, he has no history of stroke or seizure disorder, he reports good hydration, good appetite, and no chills, fever or other major medical illness recently For several years, he has numbness in the feet His orthostatic vitals (4 times) she was evidence of orthostatic hypotension Coincidentally after his C-spine surgery, the patient was has constant numbness in the left 1.5 video fingers, gripping weakness and mild left-hand intrinsic muscle atrophy Urinalysis, 11/06/2024: WBC: 1, urine leukocyte esterase: Negative UDS, 11/06/2023: Negative CBC, 11/08/2024: Unremarkable BUN/CR, 11/06/2024: 39/1.83, 11/07/2024: 31/1.5, 11/09/2024: 11/1.13 HGB A1c, 11/07/2024: 10.3 Liver function tests, 11/07/2024: Unremarkable TG/HDL/LDL/HDL, 11/07/2024: 143/154/100/27 TSH, 11/07/2024: 3.48 Carotid Doppler, 11/07/2024: 1. No hemodynamically significant stenosis noted in the right carotid system. 2. No hemodynamically significant stenosis noted in the left carotid system. CT head, 11/06/2024: No evidence of acute intracranial abnormality Past Medical History Diabetes Past Surgical History C-spine surgery Family History: Patient reports no known family medical history. Family History Noncontributory Social History He is a not a tobacco smoker, he denies a history of alcohol or recreational substance abuse Allergies: Coded Allergies: NO KNOWN ALLERGIES (Unverified , 09/02/18) Home Meds Active Scripts Pantoprazole Sodium Sesquihydr (Protonix) 40 Mg Tab, 40 MG PO DAILY, #30 TAB Prov:NABIL PAVON MD 09/01/24 Amoxicillin & Pot Clavulanate (Amoxicillin/Potassium Cla) 875 Mg Tab, 875 MG PO BID for 10 Days, #20 TAB 0 Refills Prov:MALIK BETTS [employer]ISTER WINDER 12/08/22 Bacitracin (Bacitracin Oint) 1 Applic Ap, 1 APPLIC TOP DAILY for 20 Days, #1 BOTTLE Prov:MATEO MARQUIS MD 02/19/22 Current Medications Current Medications Medications (Trade) Dose Ordered Sig/Dino Route PRN Reason Start Time Stop Time Status Last Admin Midodrine (Proamatine Tablet) 10 mg TID@0600,1200,1800 PO 11/08/24 18:00 11/09/24 12:09 Fludrocortisone Acetate (Florinef Tablet) 0.1 mg DAILY PO 11/10/24 10:00 Review of Systems As above, the other systems are negative Vital Signs Vital Signs Date Time Temp Pulse Resp B/P (MAP) Pulse Ox O2 Delivery O2 Flow Rate FiO2 11/09/24 13:00 96 18 140/85 (103) 93 11/09/24 13:00 98.0 98.0 11/09/24 08:00 Room Air* 0 21 Physical Exam GENERAL EXAM: General: the patient is well developed and nourished. No acute distress. HEENT: Normocephalic, neck is supple, no carotid bruits. No mass. RESPIRATORY: Normal respiratory effort with symmetrical lung expansion. Lungs clear to auscultation. CARDIOVASCULAR: Regular rate and rhythm with no murmurs. S1, S2. ABDOMEN: Soft, nontender, normal bowel sound NEUROLOGICAL: MENTAL STATUS: Awake and alert. Oriented to person, place, time and general circumstances. Able to give personal history. SPEECH, LANGUAGE, HIGHER CORTICAL FUNCTION: no aphasia or dysathria. CRANIAL NERVES: #2: Intact visual johnson to confrontation. The optic discs were sharp #3,4,6: Pupils are equal, round and reactive. EOMs full and conjugate. No nystagmus. #5: Facial sensation intact in all three divisions bilaterally. Mandibular strength intact. #7: Facial muscles symmetrical and strength intact. #8: Hearing grossly normal to voice. #9,10: Uvula and soft palate rise in the midline. Swallow and voice are normal. #11: Trapezius and sternomastoid strength intact bilaterally. #12: Tongue midline. No fasciculations or atrophy. SENSATION: Sensation to touch and pinprick is diminished in the feet, diminished pinprick and light touch in the left 1.5 hour finger, left hyper thenar region MOTOR: Normal tone in the upper and lower extremity. Mild left intrinsic muscle atrophy. No fasciculations. No abnormal movements or posturing. Muscle strength of the major groups in the extremities is 5/5 except for left gripping. REFLEXES: Deep tendon reflexes are symmetrically diminished in the ankles. No pathological reflexes. CEREBELLAR/COORDINATION: Finger to nose is normal bilaterally. GAIT/STATION: deferred. Labs/Diagnostic Data Labs Test 11/09/24 09:54 11/08/24 04:33 11/07/24 04:07 11/06/24 17:42 Range/Units Sodium Level 142 136-145 mmol/L Potassium Level 4.4 3.5-5.1 mmol/L Chloride Level 104 98-107 mmol/L Carbon Dioxide Level 30 20-31 mmol/L Anion Gap 8 5-15 Blood Urea Nitrogen 11 9-23 mg/dL Creatinine 1.13 0.700-1.30 mg/dL Glomerular Filtration Rate Calc 78 >90 mL/min BUN/Creatinine Ratio 9.7 L 10.0-20.0 Serum Glucose 150 H 74-106 mg/dL Calcium Level 9.6 8.7-10.4 mg/dL White Blood Count 5.6 # 4.4-10.8 10^3/uL Red Blood Count 4.78 4.5-5.90 10^6/uL Hemoglobin 14.2 13.5-17.5 g/dL Hematocrit 41.4 41.0-53.0 % Mean Corpuscular Volume 86.6 80.0-100.0 fL Mean Corpuscular Hemoglobin 29.7 28.0-32.0 pg Mean Corpuscular Hemoglobin Concent 34.3 32.0-36.0 g/dL Red Cell Distribution Width 13.5 11.8-14.3 % Platelet Count 256 140-450 10^3/uL Mean Platelet Volume 8.4 6.9-10.8 fL Neutrophils (%) (Auto) 50.9 37.0-80.0 % Lymphocytes (%) (Auto) 34.1 10.0-50.0 % Monocytes (%) (Auto) 10.1 0.0-12.0 % Eosinophils (%) (Auto) 3.8 0.0-7.0 % Basophils (%) (Auto) 1.1 0.0-2.0 % Neutrophils # (Auto) 2.9 1.6-8.6 10 ^3/uL Lymphocytes # (Auto) 1.9 0.4-5.4 10 ^3/uL Monocytes # (Auto) 0.6 0-1.3 10 ^3/uL Eosinophils # (Auto) 0.2 0-0.8 10 ^3/uL Basophils # (Auto) 0.1 0-0.2 10 ^3/uL Nucleated Red Blood Cells 0.2 % Hemoglobin A1c 10.3 H <5.7 % A1C Total Bilirubin 0.6 0.2-1.0 mg/dL Aspartate Amino Transferase (AST) 16 13-40 U/L Alanine Aminotransferase (ALT) 19 7-40 U/L Alkaline Phosphatase 133 H 46-116 U/L Total Protein 6.8 5.7-8.2 g/dL Albumin 4.1 3.2-4.8 g/dL Triglycerides Level 143 < 150 mg/dL Cholesterol Level 154 < 200 mg/dL LDL Cholesterol 100 H < 100 mg/dL HDL Cholesterol 27 L 40-59 mg/dL Thyroid Stimulating Hormone (TSH) 3.48 0.55-4.78 uIU/mL Urine Color Yellow Yellow Urine Clarity Clear Clear Urine pH 5.5 5.0-9.0 Urine Specific [place] 1.025 1.001-1.035 Urine Protein 1+ H Negative Urine Ketones 2+ H Negative Urine Blood Negative Negative /uL Urine Nitrite Negative Negative Urine Bilirubin Negative Negative Urine Urobilinogen Normal Negative mg/dL Urine Leukocyte Esterase Negative Negative /uL Urine RBC 1 0 - 3 /hpf Urine WBC 1 0 - 3 /hpf Urine Squamous Epithelial Cells Few <5 /hpf Urine Bacteria None seen None Seen /hpf Urine Hyaline Casts Few 0 - 2 /lpf Urine Mucus Few None Seen Urine Glucose 3+ H Normal mg/dL Urine Opiates Screen Neg NEGATIVE Urine Fentanyl Screen Neg NEGATIVE Urine Barbiturates Screen Neg NEGATIVE Urine Phencyclidine Screen Neg NEGATIVE Urine Amphetamines Screen Neg NEGATIVE Urine Benzodiazepines Screen Neg NEGATIVE Urine Cocaine Screen Neg NEGATIVE Urine Cannabinoids Screen Neg NEGATIVE Test 11/06/24 17:02 11/06/24 14:11 Range/Units Troponin I High Sensitivity 4 </=54 ng/L D-Dimer, Quantitative 0.38 0.0-0.49 mg/L FEU Lactic Acid Level 1.8 0.4-2.0 mmol/L Magnesium Level 2.2 1.6-2.6 mg/dL Creatine Kinase 95 46-171 U/L Assessment Recurrent dizziness Brief passing out event, Likely the patient was has syncopal event secondary to orthostatic hypotension Rule out intracranial pathology Orthostatic hypotension Polyneuropathy Dehydration Left C8, T1 radiculopathy/left ulnar mononeuropathy Plan/Recommendation Monitoring Supportive treatment Telemetry HGB A1c, vitamin B12, folic acid, TSH, serum protein electrophoresis MRI head Pressure stockings Syncopal precautions discussed Foot care Daily foot inspection Wide, soft and protect she was only Monitor Left C8, T1 radiculopathy/left ulnar mononeuropathy Cardiology on case More recommendation per clinical course This medical document was created using an electronic medical record system with [employer] dictation system. Although this document has been carefully reviewed, there may still be some phonetic and typographical errors. These areas are purely typographical due to imperfections of the software programs, and do not reflect any compromise in the patient's medical care. Plan discussed with: Patient, Other DINA SAUNDERS MD Nov 09, 2024 16:22
[2024-11-09] MEDS ORDERED: LORazepam 2MG/ML-1ML VIAL IV PRN (16:30)
--- NOTE | 2024-11-09 17:45 | DVH ---
PROCEDURE: MRI BRAIN HEAD WO CONTRAST INDICATION: syncope EXAM DATE: 11/09/2024 05:19 PM COMPARISON: None TECHNIQUE: MRI of the brain without intravenous contrast. FINDINGS: Diffusion weighted images of the brain demonstrate no evidence of acute infarction. There is no evidence of acute intracranial hemorrhage, extra-axial collection, mass effect, midline s hift, herniation or hydrocephalus. The ventricles, sulci and cisterns appear age appropriate. The signal intensities of the brain parenchyma are within normal limits. There are no signal abnormalities on the susceptibility weighted sequences. The major vascular flow voids are present. The visualized paranasal sinuses and mastoid air cells are clear. The surrounding soft tissues and o sseous structures are unremarkable. IMPRESSION: 1. No evidence of acute infarction, intracranial hemorrhage, mass effect or hydrocephalus. HS:Y
--- NOTE | 2024-11-09 18:27 | DVHPN2 ---
Consult Progress Note Date Seen: Nov 09, 2024 Subjective Other Systems: C/o dizziness with positional changes from sitting/lying to standing Objective vital signs Vital Sign Date Time Temp Pulse Resp B/P (MAP) Pulse Ox O2 Delivery O2 Flow Rate FiO2 11/09/24 16:22 98.2 93 18 134/94 (107) 92 98.2 124/86 (99) 98/68 (78) 11/09/24 08:00 Room Air* 0 21 Total Intake and Output 11/08/24 11/08/24 11/09/24 15:00 23:00 07:00 Intake Total 1000 ml 1750 ml Balance 1000 ml 1750 ml medications Current Medications Medications Dose Ordered Sig/Dino Route Start Time Stop Time Status Last Admin Dose Admin Diagnostic Test (Pha) 1 strip IQ4HR 11/07/24 00:00 11/09/24 16:05 1 STRIP Insulin Human Regular IQ4HR SC 11/07/24 00:00 11/09/24 16:06 3 UNITS Dextrose 50 ml UD PRN IV 11/06/24 21:30 Sodium Chloride 10 ml Q8HR IV 11/06/24 22:00 11/09/24 12:29 10 ML Acetaminophen/ Hydrocodone Bitart 1 tab Q4HP PRN PO 11/06/24 21:30 11/06/24 23:03 1 TAB Ondansetron HCl 4 mg Q4HP PRN IV 11/06/24 21:30 Docusate Sodium 100 mg BIDPRN PRN PO 11/06/24 21:30 Acetaminophen 650 mg Q6HP PRN PO 11/06/24 21:30 Famotidine 20 mg DAILY IV 11/07/24 10:00 11/09/24 08:45 20 MG Nitroglycerin 0.4 mg Q5MINP PRN SL 11/07/24 00:15 Morphine Sulfate 2 mg Q30M PRN IV 11/07/24 00:15 Midodrine 10 mg TID@0600,1200,1800 PO 11/08/24 18:00 11/09/24 17:54 10 MG Fludrocortisone Acetate 0.1 mg DAILY PO 11/10/24 10:00 Lorazepam 1 mg ONCE PRN IV 11/09/24 16:30 11/10/24 16:29 Examination: LUNGS:Normal, CVS:Normal, NEURO:Normal laboratory and microbiology Laboratory Tests 11/09/24 09:54 11/08/24 04:33 Test 11/09/24 09:54 Range/Units Serum Glucose 150 H 74-106 mg/dL Problem List/Assessment/Plan Problem List/Assessment/Plan Syncope and collapse Chronic compensated HFmrEF, newly diagnosed Significantly positive orthostatic hypotension rule out POTS Ftp-ctihcij-cycckvycy diabetes mellitus, uncontrolled, HgbA1C 10.3 Likely TRELL on CKD Obesity Plan/Recommendation (Dr. Gordon) The patient with reported syncopal events and dizziness with positional changes underwent a transthoracic echocardiogram revealing an LVEF of 40-45% with global hypokinesis of the left ventricle for which he will be scheduled for a cardiolite stress test to rule out coronary ischemia. Final report pending at this time. In the setting of ischemic results the patient was offered a cardiac catheterization and coronary angiogram for which he agrees. Keep NPO until further review of images. He has been found with positive orthostatic vital signs (Lyin/90 HR 97, Sitting 117/83 HR 104, Standing 78/48 HR 118) for which he received NS x 1L with subsequent orthostatic measurements revealing continuos symptomatic orthostatic VS (Lyin/95 HR 104, Sittin/81 HR 109, Standin/66 HR 106). Continue midodrine for hemodynamic support as well as JUAN DANIEL stockings. Encourage oral fluid intake as tolerated. Head CT, carotid duplex, UDS, TSH, D-dimer, and electrolytes levels all within normal limits. Continue tight glycemic control. Strongly recommend discontinuation of fludrocortisone given HFmrEF, this was discussed with primary care team. Thank you for allowing us to participate in this patient's care. Please call if you have any questions or concerns. This medical document was created using an electronic medical record system with voice recognition software and computerized dictation system. Although this document has been carefully reviewed, there might still be some phonetic and typographical errors. Occasional wrong-word or ``sound-alike substitutions may have occurred due to the inherent limitations of voice recognition software. These areas are purely typographical due to imperfections of the software programs and do not reflect any compromise in the patient's medical care. Please read the chart carefully and recognize, using context, where these substitutions have occurred. Plan discussed with: Patient, Other Date of Service: Nov 09, 2024 Billing Provider: GIO GORDON Sr., MD Cardiology Common Codes: [id number] HOSP CARE([facility] Nov 09, 2024 18:27
[2024-11-09 20:03] LABS: Folate (Folic Acid) 15.6 ng/mL (>5.38); Free T4 (Free Thyroxine) 1.17 ng/dL (0.89-1.76)
[2024-11-10] VITALS (8 sets, daily range): BP systolic 67–134; BP diastolic 40–91; PULSE 69–113; RESP 18–19; TEMP 97.8–98.8; O2SAT 90–100
[2024-11-10 07:23] LABS: Basophils # (auto) 0.1 10 ^3/uL (0-0.2); Eosinophils # (auto) 0.2 10 ^3/uL (0-0.8); Hematocrit 45.1 % (41.0-53.0); Hemoglobin 15.6 g/dL (13.5-17.5); Lymphocytes # (auto) 2.3 10 ^3/uL (0.4-5.4); Lymphocytes % (auto) 30.1 % (10.0-50.0); Mean Corpuscular Hemoglobin 29.8 pg (28.0-32.0); Mean Corpuscular Hgb Conc. 34.6 g/dL (32.0-36.0); Mean Corpuscular Volume 86.2 fL (80.0-100.0); Monocytes # (auto) 0.7 10 ^3/uL (0-1.3); Monocytes % (auto) 8.8 % (0.0-12.0); Neutrophils # (auto) 4.3 10 ^3/uL (1.6-8.6); Neutrophils % (auto) 57.1 % (37.0-80.0); Nucleated Red Blood Cells % 0.1 %; Platelet Count (auto) 284 10^3/uL (140-450); Red Blood Cells 5.23 10^6/uL (4.5-5.90); Red Cell Distribution Width 13.4 % (11.8-14.3); White Blood Cell 7.6 10^3/uL (4.4-10.8)
[2024-11-10 07:38] LABS: INR 1.07 (0.9-1.15); Prothrombin Time 11.3 sec (9.3-11.8)
[2024-11-10 07:47] LABS: Anion Gap 10 (5-15); Carbon Dioxide 29 mmol/L (20-31); Chloride 101 mmol/L (98-107); Sodium 140 mmol/L (136-145)
[2024-11-10 07:48] LABS: Potassium 3.3 mmol/L (3.5-5.1)
[2024-11-10 07:53] LABS: BUN/Creatinine Ratio 9.7 (10.0-20.0); Blood Urea Nitrogen 13 mg/dL (9-23)
[2024-11-10 07:54] LABS: Magnesium 1.7 mg/dL (1.6-2.6)
--- NOTE | 2024-11-10 07:55 | DVHSR ---
APPROVED REPORT Exam: Nuclear Stress Test Indication: Rule out coronary ischemia BMI: 0 Medical History Medical History: syncope, positive orthostatic hypotension, dm, TRELL on CKD Stress Test Details Stress Test: Pharmacologic stress testing performed using 0.4 mg of regadenoson per 5 mL given IV ov er 10 seconds. HR Resting HR: 89 bpmMax Heart Rate (APMHR): 168 bpm Max HR Achieved: 117 bpmTarget HR (85% APMHR): 143 bpm % of APMHR: 70 Recovery HR: 100 bpm BP Resting BP: 139/98 mmHg Recovery BP: 142/95 mmHg ECG Resting ECG: Sinus Rhythm Clinical Reason for Termination: Completed protocol Stress ECG Conclusion Review of the myocardial perfusion images demonstrated a moderate size area of mild intensity reduced radiotracer uptake in the mid and distal inferior wall. This appears to be fully reversible based o n review of the resting images. Otherwise, there is homogeneous radiotracer uptake throughout the re st of the left ventricular myocardium. Left ventricular volumes are normal. Ejection fraction is es timated at 48% at rest and 57% with the stress. No significant transient ischemic dilatation. No ga mihir images are available to assess for wall motion. Impression: 1. Abnormal myocardial perfusion scan suggestive of ischemia in the inferior wall. 2. Mildly decreased left ventricular systolic function with ejection fraction estimated at 48%. NM EXAM: Myocardial Perfusion REST/STRESS Imaging Protocol: Rest Tc-99m/Stress Tc-99m 1 day Resting Data Rest SPECT myocardial perfusion imaging was performed in supine position 60 minutes following the int ravenous injection of 13.5 mCi of Tc-99m Sestamibi. Time of rest injection: 1200 Time of rest imagin Administration Route: IV Administration Site: Left AC Pharmacologic Stress Pharmacologic stress test was performed by injecting Regadenoson 0.4 mg IV push followed by the intra venous injection of 35 mCi of Tc-99m Sestamibi. Time of stress injection: 1250 Time of stress imagin Administration Route: IV Administration Site: Left AC Gated Stress SPECT was performed 60 minutes after stress injection. The images were gated to evaluate regional wall motion and calculate left ventricular ejection fracti on. Stress only was performed in the Supine position. Nuclear Conclusion ECG Findings: negative for ischemia Clinical Findings: negative for ischemia Nuclear Findings: positive for ischemia Exercise Capacity: not assessed Left Ventricular Function: abnormal Risk Study: moderate Review of the myocardial perfusion images demonstrated a moderate size area of mild intensity reduced radiotracer uptake in the mid and distal inferior wall. This appears to be fully reversible based o n review of the resting images. Otherwise, there is homogeneous radiotracer uptake throughout the re st of the left ventricular myocardium. Left ventricular volumes are normal. Ejection fraction is es timated at 48% at rest and 57% with the stress. No significant transient ischemic dilatation. No ga mihir images are available to assess for wall motion. Impression: 1. Abnormal myocardial perfusion scan suggestive of ischemia in the inferior wall. 2. Mildly decreased left ventricular systolic function with ejection fraction estimated at 48%.
[2024-11-10 08:02] LABS: Glucose 154 mg/dL (74-106)
[2024-11-10] MEDS: POTASSIUM EFFERVESENT TAB 25 MEQ PO ONE (09:51)
[2024-11-10] MEDS ORDERED: FLUDROCORTISONE ACETATE 0.1 MG TAB PO SCH (10:00)
[2024-11-10] MEDS: ENOXAPARIN SOD 40 MG/0.4 ML SYRINGE SC ONE (10:30)
[2024-11-10] MEDS ORDERED: SODIUM CHLORIDE 0.9% 1,000 ML IV SCH (10:30)
--- NOTE | 2024-11-10 10:42 | DVHPN2 ---
Consult Progress Note Date Seen: Nov 10, 2024 Subjective Review of Systems: CVS:Normal, RESPIRATORY:Normal, NEURO:Abnormal Other Systems: C/o dizziness with positional changes Objective vital signs Vital Sign Date Time Temp Pulse Resp B/P (MAP) Pulse Ox O2 Delivery O2 Flow Rate FiO2 11/10/24 08:42 98.5 109 18 123/86 (98) 93 98.5 81/59 (66) 82/54 (63) 11/09/24 20:00 Room Air* 0 21 Total Intake and Output 11/09/24 11/09/24 11/10/24 15:00 23:00 07:00 Intake Total 360 ml 800 ml Balance 360 ml 800 ml medications Current Medications Medications Dose Ordered Sig/Dino Route Start Time Stop Time Status Last Admin Dose Admin Diagnostic Test (Pha) 1 strip IQ4HR 11/07/24 00:00 11/10/24 08:00 1 STRIP Insulin Human Regular IQ4HR SC 11/07/24 00:00 11/09/24 22:09 2 UNITS Dextrose 50 ml UD PRN IV 11/06/24 21:30 Sodium Chloride 10 ml Q8HR IV 11/06/24 22:00 11/10/24 05:57 10 ML Acetaminophen/ Hydrocodone Bitart 1 tab Q4HP PRN PO 11/06/24 21:30 11/06/24 23:03 1 TAB Ondansetron HCl 4 mg Q4HP PRN IV 11/06/24 21:30 Docusate Sodium 100 mg BIDPRN PRN PO 11/06/24 21:30 Acetaminophen 650 mg Q6HP PRN PO 11/06/24 21:30 Famotidine 20 mg DAILY IV 11/07/24 10:00 11/09/24 08:45 20 MG Nitroglycerin 0.4 mg Q5MINP PRN SL 11/07/24 00:15 Morphine Sulfate 2 mg Q30M PRN IV 11/07/24 00:15 Midodrine 10 mg TID@0600,1200,1800 PO 11/08/24 18:00 11/09/24 17:54 10 MG Lorazepam 1 mg ONCE PRN IV 11/09/24 16:30 11/10/24 16:29 Examination: GENERAL:Normal, LUNGS:Normal, CVS:Normal, NEURO:Normal laboratory and microbiology Laboratory Tests 11/10/24 05:46 Test 11/10/24 05:46 Range/Units Serum Glucose 154 H 74-106 mg/dL Problem List/Assessment/Plan Problem List/Assessment/Plan Syncope and collapse Chronic compensated HFmrEF, newly diagnosed Significantly positive orthostatic hypotension Zqp-ltozode-lkrxpnhxq diabetes mellitus, uncontrolled, HgbA1C 10.3 Likely TRELL on CKD Obesity Plan/Recommendation (Dr. Hendrix) Patient seen and evaluated at bedside by Dr. Hendrix. The patient with reported syncopal events and dizziness with positional changes underwent a transthoracic echocardiogram revealing an LVEF of 40-45% with global hypokinesis of the left ventricle for which he underwent a cardiolite stress test deemed to be ischemic to the inferior wall. Scheduled for left cardiac catheterization and coronary angiogram on 11/11/24. All risks and benefits of the procedure were discussed in full detail and agrees with POC. The patient also has been found with significantly positive orthostatic vital signs and initiated on midodrine and fludrocortisone for hemodynamic support as well as JUAN DANIEL stockings. Encourage oral fluid intake as tolerated. Initiate renal hydration pre- procedure. Replete electrolytes as necessary. Head CT, carotid duplex, UDS, TSH, D-dimer, and electrolytes levels all within normal limits. Continue tight glycemic control. DVT/VTE prophylaxis. Thank you for allowing us to participate in this patient's care. Please call if you have any questions or concerns. This medical document was created using an electronic medical record system with voice recognition software and computerized dictation system. Although this document has been carefully reviewed, there might still be some phonetic and typographical errors. Occasional wrong-word or ``sound-alike substitutions may have occurred due to the inherent limitations of voice recognition software. These areas are purely typographical due to imperfections of the software programs and do not reflect any compromise in the patient's medical care. Please read the chart carefully and recognize, using context, where these substitutions have occurred. Plan discussed with: Patient, Other Date of Service: Nov 10, 2024 Billing Provider: ORQUIDEA HENDRIX MD Cardiology Common Codes: [id number] HOSP CARE([facility] Nov 10, 2024 10:42
[2024-11-10] MEDS: FLUDROCORTISONE ACETATE 0.1 MG TAB PO ONE ×2 (11:08→13:39)
[2024-11-10] MEDS: MAGNESIUM OXIDE 400 MG TAB PO ONE (11:08)
--- NOTE | 2024-11-10 14:15 | DVH ---
BLADDER ULTRASOUND CLINICAL HISTORY: Retention of urine TECHNIQUE: Multiple transabdominal ultrasound images of the bladder were obtained. COMPARISON: Renal ultrasound 11/07/2024 FINDINGS: The postvoid residual volume within the bladder is 209 cc. Prevoid volume in the bladder on prior ult rasound study was 847 cc. IMPRESSION: 1. Bladder postvoid residual is 209 cc. HS:Y
--- NOTE | 2024-11-10 14:24 | ECG ---
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
--- NOTE | 2024-11-10 14:40 | ECG ---
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
--- NOTE | 2024-11-10 14:58 | DVHPNRES ---
Progress Note Date Seen: Nov 10, 2024 Resident Creating Document: JANE MITCHELL RESIDENT Medical Necessity Reason Pt with a Central, PICC or Fol: No Subjective Review of Systems Patient is 64 years old male with past medical history of diabetes mellitus came with a complaint of syncope. As per patient patient had a blackout event yesterday and he completely blacked out and do not remember what happened. Patient also reported that he was feeling dizzy before he blacked out. Patient fell on his back when he blacked out and hit his head on the back of his head. he also reported he had 2 more episodes of black out 2 days before. patient was feeling dizzy before he passed out. Patient also reported that he has been h feeling dizzy bolus 1 month. Patient reported that he feels dizzy when he tries to get up from the bed or tries to stand up from sitting position. Patient also reported at times he feels there is a change in vision and he sees black and white thanks. Patient denied any chest pain, shortness of breath, palpitation, acute diarrhea, acute joint pain or swelling, acute dysarthria. Initial lab workup revealed elevated creatinine 1.83, elevated BUN 31, GFR low 56, HGB A1c 10.3.. Patient was negative for troponin I, CPK 95, UDS negative, D-dimer 0.38, units is negative. CT brain-No evidence of acute intracranial abnormality. CXR- No acute disease. Carotid Doppler-No hemodynamically significant stenosis noted in the right or left carotid system. Renal Ultrasound-Normal renal ultrasound. MRI of the brain revealed -No evidence of acute infarction, intracranial hemorrhage, mass effect or hydrocephalus. PMH-diabetes mellitus type 2 PSH- cervical spine surgery Allergy- NKDA Personal History/ Social History- denies smoking or alcoholism or drug abuse, lives at home Patient was seen today at the bedside. Cardiovascular- deny acute chest pain or shortness of breath or cough or palpitation Respiratory- denies cough or short of breath or wheezing Gastrointestinal- denies any rectal bleeding, nausea or vomiting Musculoskeletal-denies acute joint swelling or tenderness or redness Neurological- denies acute dysarthria, dysphagia, Psychiatry- denies depression or SI or HI Skin- denies acute rash or purpura Patient was seen today for clinical evaluation. Labs and chart reviewed. Patient with persistent orthostatic hypotension and some dizziness. Patient was seen by laborer aquatic life, recommendation reviewed and appreciated. Patient with a stress test positive and plan is to do left heart catheterization tomorrow in the morning. We will continue with the fludrocortisone 0.1 mg p.o. daily. Today on 11/10/2024 Ultrasound of the urinary bladder revealed- Bladder postvoid residual is 209 cc. On 11/09/2024 Cardiolite stress test- Abnormal myocardial perfusion scan suggestive of ischemia in the inferior wall. Mildly decreased left ventricular systolic function with ejection fraction estimated at 48%. Patient was scheduled for left heart catheterization tomorrow. Objective vital signs Vital Sign Date Time Temp Pulse Resp B/P (MAP) Pulse Ox O2 Delivery O2 Flow Rate FiO2 11/10/24 12:50 98.4 110 19 106/74 (85) 90 98.4 11/10/24 08:00 Room Air* 0 21 Total Intake and Output 11/09/24 11/09/24 11/10/24 15:00 23:00 07:00 Intake Total 360 ml 800 ml Balance 360 ml 800 ml medications Current Medications Medications Dose Ordered Sig/Dino Route Start Time Stop Time Status Last Admin Dose Admin Diagnostic Test (Pha) 1 strip IQ4HR 11/07/24 00:00 11/10/24 12:00 1 STRIP Insulin Human Regular IQ4HR SC 11/07/24 00:00 11/09/24 22:09 2 UNITS Dextrose 50 ml UD PRN IV 11/06/24 21:30 Sodium Chloride 10 ml Q8HR IV 11/06/24 22:00 11/10/24 05:57 10 ML Acetaminophen/ Hydrocodone Bitart 1 tab Q4HP PRN PO 11/06/24 21:30 11/06/24 23:03 1 TAB Ondansetron HCl 4 mg Q4HP PRN IV 11/06/24 21:30 Docusate Sodium 100 mg BIDPRN PRN PO 11/06/24 21:30 Acetaminophen 650 mg Q6HP PRN PO 11/06/24 21:30 Famotidine 20 mg DAILY IV 11/07/24 10:00 11/09/24 08:45 20 MG Nitroglycerin 0.4 mg Q5MINP PRN SL 11/07/24 00:15 Morphine Sulfate 2 mg Q30M PRN IV 11/07/24 00:15 Midodrine 10 mg TID@0600,1200,1800 PO 11/08/24 18:00 11/10/24 13:39 10 MG Lorazepam 1 mg ONCE PRN IV 11/09/24 16:30 11/10/24 16:29 Magnesium Oxide 400 mg DAILY PO 11/11/24 10:00 Enoxaparin Sodium 40 mg DAILY SC 11/11/24 10:00 Sodium Chloride 1,000 ml @ 60 mls/hr [id number] IV 11/10/24 10:45 Fludrocortisone Acetate 0.1 mg DAILY PO 11/11/24 10:00 Examination General examination- awake, alert, oriented, conversant HEENT- PEERLA, no acute nasal discharge Cardiovascular- S1-S2 audible, rate and rhythm regular, no murmur Respiratory- CTAB, no wheeze or rhonchi Gastrointestinal-nontender, bowel sound+. Nondistended Musculoskeletal-no acute joint swelling or tenderness or redness# extremity- left after extremity weakness previous neck surgery or cervical spine surgery Neurological- cranial nerves intact, no acute dysarthria or dysphagia Psychiatry- denies depression or SI or HI Skin- no acute rash or purpura laboratory and microbiology Laboratory Tests 11/10/24 05:46 Test 11/10/24 05:46 Range/Units Serum Glucose 154 H 74-106 mg/dL Problem List/Assessment/Plan Problem List/Assessment/Plan Acute syncope likely due to orthostatic hypotension Suspected autonomic neuropathy leading to orthostatic hypotension and suspected retention of urine, rule out BP Chronic compensated HFmrEF, newly diagnosed Rule out cardiac causes Diabetes mellitus type 2, uncontrolled, HGB A1c 10.3 TRELL on CKD stage 3 likely due to VMN OBESITY, BMI 31.6 Cardiolite stress test- Abnormal myocardial perfusion scan suggestive of ischemia in the inferior wall. Mildly decreased left ventricular systolic function with ejection fraction estimated at 48%. On 11/10/2024-ultrasound of the urinary Bladder- postvoid residual is 209 cc. Echo 2D revealed- The left ventricle is normal size. Left ventricular systolic function is mildly reduced, LVEF is 40-45%. There is global hypokinesis of the left ventricle. orthostatic vitals-positive for orthostatic hypotension Continue fludrocortisone 0.1 mg p.o. daily Continuously sliding scale as prescribed Famotidine 20 mg IV b.i.d. Continue midodrine 10 mg t.i.d. Goals of care/advance care planning; FULL CODE; discussed with the patient >15 minutes PUD prophylaxis: Famotidine DVT prophylaxis: Patient ambulating Plan discussed with Dr. Peres, nursing staff, patient Total time spent on patient evaluation, chart review, assessment and plan, discussion discussion >30 minutes Plan discussed with: Patient Plan discussed with: Patient, Other (RN) My Orders My Orders Orders - JANE MITCHELL Procedure Category Date Status Time Abdomen Limited US 11/10/24 Resulted 11:19 Fludrocortisone PHA 11/11/24 In Process Tablet (Florinef 10:00 Date of Service: Nov 10, 2024 Billing Provider: MARINE PERES MD Common Visit Codes: [id number] INP/OBS CARE(HIGH) JANE MITCHELL Nov 10, 2024 14:58 MARINE PERES MD Nov 10, 2024 20:16
--- NOTE | 2024-11-10 23:22 | DVHPN2 ---
Progress Note - Dictate Date Seen: Nov 10, 2024 Medical Necessity Reason Pt with a Central, PICC or Fol: No Subjective Mr. Gutierrez is a 54 years old right-handed gentleman with a history of diabetes, obesity, he was taken to the [facility] on 11/06/2024 with a chief company of dizziness and syncopal events. I have seen and examined the patient, discussed with his nurse. He keeps vitamin dizziness when he was off bed, he was more positive orthostatic vital test Urinalysis, 11/06/2024: WBC: 1, urine leukocyte esterase: Negative UDS, 11/06/2023: Negative CBC, 11/08/2024: Unremarkable BUN/CR, 11/06/2024: 39/1.83, 11/07/2024: 31/1.5, 11/09/2024: 11/1.13 HGB A1c, 11/07/2024: 10.3 Liver function tests, 11/07/2024: Unremarkable TG/HDL/LDL/HDL, 11/07/2024: 143/154/100/27 Vitamin B12, 11/2024: 1325 Folic acid, 11/2024: 15.6 TSH, 11/07/2024: 3.48 Carotid Doppler, 11/07/2024: 1. No hemodynamically significant stenosis noted in the right carotid system. 2. No hemodynamically significant stenosis noted in the left carotid system. CT head, 11/06/2024: No evidence of acute intracranial abnormality MRI brain, 11/09/2024: No evidence of acute infarction, intracranial hemorrhage, mass effect or hydrocephalus vital signs Vital Sign Date Time Temp Pulse Resp B/P (MAP) Pulse Ox O2 Delivery O2 Flow Rate FiO2 11/10/24 21:12 98.0 101 18 133/91 (105) 94 98.0 99/67 (78) 84/54 (64) 11/10/24 20:00 Room Air* 0 21 Total Intake and Output 11/09/24 11/09/24 11/10/24 15:00 23:00 07:00 Intake Total 360 ml 800 ml Balance 360 ml 800 ml medications Current Medications Medications Dose Ordered Sig/Dino Route Start Time Stop Time Status Last Admin Dose Admin Diagnostic Test (Pha) 1 strip IQ4HR 11/07/24 00:00 11/10/24 20:00 1 STRIP Insulin Human Regular IQ4HR SC 11/07/24 00:00 11/10/24 20:46 3 UNITS Dextrose 50 ml UD PRN IV 11/06/24 21:30 Sodium Chloride 10 ml Q8HR IV 11/06/24 22:00 11/10/24 18:08 10 ML Acetaminophen/ Hydrocodone Bitart 1 tab Q4HP PRN PO 11/06/24 21:30 11/06/24 23:03 1 TAB Ondansetron HCl 4 mg Q4HP PRN IV 11/06/24 21:30 Docusate Sodium 100 mg BIDPRN PRN PO 11/06/24 21:30 Acetaminophen 650 mg Q6HP PRN PO 11/06/24 21:30 Famotidine 20 mg DAILY IV 11/07/24 10:00 11/09/24 08:45 20 MG Nitroglycerin 0.4 mg Q5MINP PRN SL 11/07/24 00:15 Morphine Sulfate 2 mg Q30M PRN IV 11/07/24 00:15 Midodrine 10 mg TID@0600,1200,1800 PO 11/08/24 18:00 11/10/24 18:07 10 MG Magnesium Oxide 400 mg DAILY PO 11/11/24 10:00 Enoxaparin Sodium 40 mg DAILY SC 11/11/24 10:00 Sodium Chloride 1,000 ml @ 60 mls/hr [id number] IV 11/10/24 10:45 Fludrocortisone Acetate 0.1 mg DAILY PO 11/11/24 10:00 objective General: the patient is well developed and nourished. No acute distress. MENTAL STATUS: Awake and alert. Oriented to person, place, time and general circumstances. Able to give personal history. SPEECH, LANGUAGE, HIGHER CORTICAL FUNCTION: no aphasia or dysathria. CRANIAL NERVES: Pupils are equal, round and reactive. EOMs full and conjugate. No nystagmus. Facial sensation intact in all three divisions bilaterally. Mandibular strength intact. Facial muscles symmetrical and strength intact. SENSATION: Sensation to touch and pinprick is diminished in the feet, diminished pinprick and light touch in the left 1.5 hour finger, left hyper thenar region MOTOR: Normal tone in the upper and lower extremity. Mild left intrinsic muscle atrophy. No fasciculations. No abnormal movements or posturing. Muscle strength of the major groups in the extremities is 5/5 except for left gripping. REFLEXES: Deep tendon reflexes are symmetrically diminished in the ankles. No pathological reflexes. CEREBELLAR/COORDINATION: Finger to nose is normal bilaterally. GAIT/STATION: deferred. laboratory and microbiology Laboratory Tests 11/10/24 05:46 Test 11/10/24 05:46 Range/Units Serum Glucose 154 H 74-106 mg/dL Problem List Recurrent dizziness Brief passing out event, Likely the patient was has syncopal event secondary to orthostatic hypotension Rule out intracranial pathology Orthostatic hypotension Polyneuropathy Dehydration Left C8, T1 radiculopathy/left ulnar mononeuropathy Assessment/Plan Monitoring Supportive treatment Telemetry Serum protein electrophoresis Florinef 0.1 mg daily Midodrine 10 mg t.i.d. Pressure stockings Syncopal precautions discussed Foot care Daily foot inspection Wide, soft and protect she was only Monitor Left C8, T1 radiculopathy/left ulnar mononeuropathy Cardiology on case More recommendation per clinical course This medical document was created using an electronic medical record system with [employer] dictation system. Although this document has been carefully reviewed, there may still be some phonetic and typographical errors. These areas are purely typographical due to imperfections of the software programs, and do not reflect any compromise in the patient's medical care. Prognosis poor Dietary Evaluation Review Comments: 1) Consider a CCHO 75g/2gm Sodium diet 2) Continue current plan of care Expected Outcomes/Goals: F/U in 3-5 days Plan discussed with: Patient, Other DINA SAUNDERS MD Nov 10, 2024 23:22
[2024-11-11] VITALS (14 sets, daily range): BP systolic 111–132; BP diastolic 70–90; PULSE 92–101; RESP 12–19; TEMP 98–98.2; O2SAT 91–97
[2024-11-11 07:15] LABS: INR 1.08 (0.9-1.15); Partial Thromboplastin Time 28.6 SEC (24.5-34.5); Prothrombin Time 11.4 sec (9.3-11.8)
[2024-11-11 07:24] LABS: Basophils # (auto) 0.1 10 ^3/uL (0-0.2); Basophils % (auto) 0.9 % (0.0-2.0); Eosinophils # (auto) 0.3 10 ^3/uL (0-0.8); Hematocrit 42.6 % (41.0-53.0); Hemoglobin 14.5 g/dL (13.5-17.5); Lymphocytes # (auto) 2.3 10 ^3/uL (0.4-5.4); Lymphocytes % (auto) 32.8 % (10.0-50.0); Mean Corpuscular Hemoglobin 29.3 pg (28.0-32.0); Mean Corpuscular Hgb Conc. 34.1 g/dL (32.0-36.0); Mean Corpuscular Volume 86.1 fL (80.0-100.0); Monocytes # (auto) 0.7 10 ^3/uL (0-1.3); Monocytes % (auto) 9.8 % (0.0-12.0); Neutrophils # (auto) 3.7 10 ^3/uL (1.6-8.6); Neutrophils % (auto) 52.5 % (37.0-80.0); Nucleated Red Blood Cells % 0.4 %; Platelet Count (auto) 264 10^3/uL (140-450); Red Blood Cells 4.95 10^6/uL (4.5-5.90); Red Cell Distribution Width 13.7 % (11.8-14.3); White Blood Cell 7.1 10^3/uL (4.4-10.8)
[2024-11-11 07:28] LABS: Anion Gap 6 (5-15); Chloride 101 mmol/L (98-107); Potassium 3.6 mmol/L (3.5-5.1); Sodium 139 mmol/L (136-145)
[2024-11-11 07:29] LABS: Calcium 9.8 mg/dL (8.7-10.4)
[2024-11-11 07:32] LABS: Carbon Dioxide 32 mmol/L (20-31)
[2024-11-11 07:35] LABS: BUN/Creatinine Ratio 16.7 (10.0-20.0); Blood Urea Nitrogen 20 mg/dL (9-23)
[2024-11-11 07:36] LABS: Glucose 150 mg/dL (74-106)
[2024-11-11 08:06] LABS: Immunoglobulin A 214 mg/dL (90-386); Immunoglobulin G, Serum 989 mg/dL (603-1613); Immunoglobulin M 44 mg/dL (20-172)
[2024-11-11] MEDS: ceFAZolin 2 GM/D5W100ml 0 ML IV ONE (08:46)
[2024-11-11] MEDS: ENOXAPARIN SOD 40 MG/0.4 ML SYRINGE SC SCH (09:48)
[2024-11-11] MEDS: FLUDROCORTISONE ACETATE 0.1 MG TAB PO SCH (09:50)
[2024-11-11] MEDS: MAGNESIUM OXIDE 400 MG TAB PO SCH (09:50)
[2024-11-11] MEDS ORDERED: FLUDROCORTISONE ACETATE 0.1 MG TAB PO SCH (10:00)
[2024-11-11] MEDS: IODIXANOL 320MG/ML 100ML BTL IV ONE (10:59)
[2024-11-11] MEDS: fentaNYL CITRATE 100 MCG/2 ML VL ONE (11:57)
[2024-11-11] MEDS: LIDOCAINE 2%HCL (LOCAL ANESTH.) INJ 20ML MDV ONE (11:57)
[2024-11-11] MEDS: VERAPAMIL 2.5MG/ML INJ 2ML VIAL IV ONE (11:57)
[2024-11-11] MEDS: HEPARIN SODIUM (PORCINE) 5000 UNITS/ML 1ML VIAL ONE (11:57)
[2024-11-11] MEDS: MIDAZOLAM HCL 2MG/2ML 2ml VIAL (1mg/ml) ONE (11:57)
[2024-11-11] MEDS: SODIUM CHL 0.9% 0 ML ONE (11:57)
[2024-11-11] MEDS: ANGIOMAX 250 MG VIAL IV ONE (11:57)
--- NOTE | 2024-11-11 12:39 | DVHOP2 ---
Operative Report - 2 Report Details Date: 11/11/24 Preop Diagnosis: Patient presented to the hospital with a syncope. He was found to have significant orthostatic hypotension. As part of the workup, he had an echo done which reported mildly decreased ejection fraction with global hypokinesis. Nuclear stress test was done which reported possible inferior wall ischemia. Patient does not have any history of angina or clinical heart failure. Postop Diagnosis: 1. Low normal LVEDP. 2. Lmktecpv-fo-kgzhjb stenosis in the very distal apical LAD. 3. Czamcstp-an-jaituw stenosis in a small right posterolateral branch. 4. Otherwise, there is mild multivessel coronary artery disease. Surgeon: Orquidea Hendrix MD Anesthesiologist: The patient was deemed an adequate candidate for conscious sedation. Versed and fentanyl were given during the procedure. He was given2 mg of Versed and 50 mcg of fentanyl. I was available for continued wukk-xd-bhja monitoring throughout the procedure. Anesthesia: Local Consent: The patient was informed of the risks and benefits of the procedure. These include but are not limited to complications of anesthesia, postoperative infection, incomplete relief of symptoms, recurrence of symptoms, damage to blood vessels, nerves and tendons, deep venous thrombosis, pulmonary embolism and possible need for repeat surgery in the future. Estimated Blood Loss: 10 cc Name of Procedure Performed 1. Selective coronary angiography. 2. Left heart catheterization. 3. Moderated sedation. Procedure Details Procedure Details: The patient was brought to the cathodic protection technician in a stable condition. Patient was found to have normal pulses in the right radial artery. The right wrist area was sterilized and draped in a sterile fashion. The skin was anesthetized using 1% lidocaine. Access in the right radial artery was obtained using a Seldinger approach. An 11 cm sheath was placed in the right radial artery. The left heart catheterization, left coronary angiography, and right coronary angiography were performed using a5 Qatari tiger catheter. At the completion of the procedure hemostasis in radial artery was obtained using a TR band. Findings: Hemodynamics: Aortic pressure was 100/60 mm Hg, LVEDP was 6 mm Hg. There is no significant gradient on LV to aorta pullback. Coronary angiography: The left main coronary artery is a normal caliber bifurcating vessel. It is free of any significant disease. The left anterior descending artery is moderate caliber vessel that extends to the apex. There is mild diffuse proximal to mid disease. The distal apical vessel has discrete 71% stenosis right after the takeoff of a diagonal branch. Diagonal branches are with no significant stenosis. The left circumflex artery is a normal-caliber nondominant vessel. No significant disease. There is a large obtuse marginal branch with no significant disease. The right coronary artery is a normal caliber and dominant vessel. There is mild diffuse proximal to mid disease. RPDA is large in size with no significant stenosis. The right posterolateral branch appears to be small in size with proximal 60-70% segmental stenosis. Impressions: 1. Low normal LVEDP. 2. Kxdwzndi-nw-klodaa stenosis in the small distal apical LAD. 3. Kodmletq-sb-qwlxza stenosis in a small right posterolateral branch. 4. Otherwise there is mild diffuse multivessel coronary artery disease. Plan: 1. Medical therapy failure coronary artery disease. 2. Patient needs to be on a statin therapy with goal LDL of less than 55. 3. Better control of his diabetes mellitus. Goal hemoglobin A1c less than 7.0%. 4. Aspirin 81 mg daily indefinitely. 5. Risk factors modifications. Condition Stable Disposition Still a Patient ORQUIDEA HENDRIX MD Nov 11, 2024 12:39
[2024-11-11] MEDS: SODIUM CHLORIDE 0.9% 1,000 ML IV SCH (14:06)
[2024-11-11] MEDS ORDERED: FLU01T PO (14:49)
[2024-11-11] MEDS ORDERED: MID10T PO (14:49)
[2024-11-11] MEDS ORDERED: METF-372 PO (14:49)
[2024-11-11] MEDS ORDERED: ATOR40TA52 PO (14:51)
[2024-11-11] MEDS ORDERED: ASPI-325 PO (14:51)
--- NOTE | 2024-11-11 14:56 | DVHDSRES ---
Discharge Summary Date of Admission Resident Creating Document: JANE MITCHELL RESIDENT Nov 07, 2024 at 00:05 Date of Discharge: Nov 11, 2024 Admitting Diagnosis Syncope Labs/Diagnostic Data: Laboratory Results Test 11/11/24 13:27 11/11/24 05:19 11/10/24 05:46 11/09/24 19:20 POC Glucose 160 mg/dl (70-106) White Blood Count 7.1 10^3/uL (4.4-10.8) Red Blood Count 4.95 10^6/uL (4.5-5.90) Hemoglobin 14.5 g/dL (13.5-17.5) Hematocrit 42.6 % (41.0-53.0) Mean Corpuscular Volume 86.1 fL (80.0-100.0) Mean Corpuscular Hemoglobin 29.3 pg (28.0-32.0) Mean Corpuscular Hemoglobin Concent 34.1 g/dL (32.0-36.0) Red Cell Distribution Width 13.7 % (11.8-14.3) Platelet Count 264 10^3/uL (140-450) Mean Platelet Volume 8.2 fL (6.9-10.8) Neutrophils (%) (Auto) 52.5 % (37.0-80.0) Lymphocytes (%) (Auto) 32.8 % (10.0-50.0) Monocytes (%) (Auto) 9.8 % (0.0-12.0) Eosinophils (%) (Auto) 4.0 % (0.0-7.0) Basophils (%) (Auto) 0.9 % (0.0-2.0) Neutrophils # (Auto) 3.7 10 ^3/uL (1.6-8.6) Lymphocytes # (Auto) 2.3 10 ^3/uL (0.4-5.4) Monocytes # (Auto) 0.7 10 ^3/uL (0-1.3) Eosinophils # (Auto) 0.3 10 ^3/uL (0-0.8) Basophils # (Auto) 0.1 10 ^3/uL (0-0.2) Nucleated Red Blood Cells 0.4 % Prothrombin Time 11.4 sec (9.3-11.8) Prothrombin Time INR 1.08 (0.9-1.15) Activated Partial Thromboplast Time 28.6 SEC (24.5-34.5) Sodium Level 139 mmol/L (136-145) Potassium Level 3.6 mmol/L (3.5-5.1) Chloride Level 101 mmol/L (98-107) Carbon Dioxide Level 32 mmol/L (20-31) Anion Gap 6 (5-15) Blood Urea Nitrogen 20 mg/dL (9-23) Creatinine 1.20 mg/dL (0.700-1.30) Glomerular Filtration Rate Calc 73 mL/min (>90) BUN/Creatinine Ratio 16.7 (10.0-20.0) Serum Glucose 150 mg/dL (74-106) Calcium Level 9.8 mg/dL (8.7-10.4) Magnesium Level 1.7 mg/dL (1.6-2.6) Serum Immunoglobulin G 989 mg/dL (603-1613) Vitamin B12 Level 1325 pg/mL (211-911) Folic Acid 15.60 ng/mL (>5.38) Thyroid Stimulating Hormone (TSH) 2.78 uIU/mL (0.55-4.78) Free Thyroxine (T4) Calculated 1.17 ng/dL (0.89-1.76) Immunoglobulin A 214 mg/dL (90-386) Immunoglobulin M 44 mg/dL (20-172) Test 11/07/24 04:07 11/06/24 17:42 11/06/24 17:02 11/06/24 14:11 Hemoglobin A1c 10.3 % A1C (<5.7) Total Bilirubin 0.6 mg/dL (0.2-1.0) Aspartate Amino Transferase (AST) 16 U/L (13-40) Alanine Aminotransferase (ALT) 19 U/L (7-40) Alkaline Phosphatase 133 U/L (46-116) Total Protein 6.8 g/dL (5.7-8.2) Albumin 4.1 g/dL (3.2-4.8) Triglycerides Level 143 mg/dL (< 150) Cholesterol Level 154 mg/dL (< 200) LDL Cholesterol 100 mg/dL (< 100) HDL Cholesterol 27 mg/dL (40-59) Urine Color Yellow (Yellow) Urine Clarity Clear (Clear) Urine pH 5.5 (5.0-9.0) Urine Specific [place] 1.025 (1.001-1.035) Urine Protein 1+ (Negative) Urine Ketones 2+ (Negative) Urine Blood Negative /uL (Negative) Urine Nitrite Negative (Negative) Urine Bilirubin Negative (Negative) Urine Urobilinogen Normal mg/dL (Negative) Urine Leukocyte Esterase Negative /uL (Negative) Urine RBC 1 /hpf (0 - 3) Urine WBC 1 /hpf (0 - 3) Urine Squamous Epithelial Cells Few /hpf (<5) Urine Bacteria None seen /hpf (None Seen) Urine Hyaline Casts Few /lpf (0 - 2) Urine Mucus Few (None Seen) Urine Glucose 3+ mg/dL (Normal) Urine Opiates Screen Neg (NEGATIVE) Urine Fentanyl Screen Neg (NEGATIVE) Urine Barbiturates Screen Neg (NEGATIVE) Urine Phencyclidine Screen Neg (NEGATIVE) Urine Amphetamines Screen Neg (NEGATIVE) Urine Benzodiazepines Screen Neg (NEGATIVE) Urine Cocaine Screen Neg (NEGATIVE) Urine Cannabinoids Screen Neg (NEGATIVE) Troponin I High Sensitivity 4 ng/L (</=54) D-Dimer, Quantitative 0.38 mg/L FEU (0.0-0.49) Lactic Acid Level 1.8 mmol/L (0.4-2.0) Creatine Kinase 95 U/L (46-171) Other Laboratory Tests 11/11/24 05:19 Brief Hx & Hospital Course: Patient is 64 years old male with past medical history of diabetes mellitus came with a complaint of syncope. As per patient patient had a blackout event yesterday and he completely blacked out and do not remember what happened. Patient also reported that he was feeling dizzy before he blacked out. Patient fell on his back when he blacked out and hit his head on the back of his head. he also reported he had 2 more episodes of black out 2 days before. patient was feeling dizzy before he passed out. Patient also reported that he has been h feeling dizzy bolus 1 month. Patient reported that he feels dizzy when he tries to get up from the bed or tries to stand up from sitting position. Patient also reported at times he feels there is a change in vision and he sees black and white thanks. Patient denied any chest pain, shortness of breath, palpitation, acute diarrhea, acute joint pain or swelling, acute dysarthria. Initial lab workup revealed elevated creatinine 1.83, elevated BUN 31, GFR low 56, HGB A1c 10.3.. Patient was negative for troponin I, CPK 95, UDS negative, D-dimer 0.38, units is negative. CT brain-No evidence of acute intracranial abnormality. CXR- No acute disease. Carotid Doppler-No hemodynamically significant stenosis noted in the right or left carotid system. Renal Ultrasound-Normal renal ultrasound. MRI of the brain revealed -No evidence of acute infarction, intracranial hemorrhage, mass effect or hydrocephalus. During hospital course patient was found to have orthostatic hypotension which explain his dizziness and likely syncope. Patient was placed on midodrine followed by fludrocortisone 0.1 mg p.o. daily, patient was seen by clinical education academic coordinator and stress test was significantly positive. Left heart catheterization was done on 11/11/2024. Left heart catheterization revealed- Low normal LVEDP. Rctudyrw-ub-hdtujk stenosis in the small distal apical LAD. Qiwlkvrs-my-kesyjm stenosis in a small right posterolateral branch. Otherwise there is mild diffuse multivessel coronary artery disease. Recommendation was medical management with a goal of LDL of less than 55, better control of diabetes mellitus with a goal of HGB A1c less than 7, aspirin 80 mg p.o. daily with the other factor modification. Patient was seen also by neurologist. On ultrasound and also bedside bladder scan revealed Patient had significant post vital residual volume likely due to autonomic neuropathy. Patient was advised to follow up with the clinical education academic coordinator in 1-2 week, with PCP in 1 week and also to follow up with the neurologist in 1-2 week for further evaluation and care. Patient was discharged with the fludrocortisone 0.1 mg p.o. daily, hydralazine 10 mg p.o. q.8h, aspirin 81 mg p.o. daily, atorvastatin 40 mg p.o. daily, pantoprazole 40 mg daily. Patient's meds were sent to the pharmacy electronically. Patient was advised to comply with the medication. Patient was hemodynamically stable on discharge. General examination- awake, alert, oriented, conversant HEENT- PEERLA, no acute nasal discharge Cardiovascular- S1-S2 audible, rate and rhythm regular, no murmur Respiratory- CTAB, no wheeze or rhonchi Gastrointestinal-nontender, bowel sound+. Nondistended Musculoskeletal-no acute joint swelling or tenderness or redness# extremity- left after extremity weakness previous neck surgery or cervical spine surgery Neurological- cranial nerves intact, no acute dysarthria or dysphagia Psychiatry- denies depression or SI or HI Skin- no acute rash or purpura Operations or Procedures [place] [address] Ph: [phone] DIAGNOSTIC IMAGING Diagnostic Imaging Report : [id number] Signed PATIENT: AGUSTO MUNROE PACCT: [id number] UNIT: [id number] : 1970 LOC: ER ROOM / BED: / AGE / SEX: 54 / M ADM STATUS: REG ER SERVICE 1346 ORDERING PHYSICIAN: GARLAND GAXIOLA DO PROCEDURE(s): CXRP - CHEST PORTABLE REASON: syncope, [facility] ORDER NUMBER(s): [id number], ACCESSION NUMBER(s): [id number] CHEST RADIOGRAPH Indication: syncope, [facility] Technique: Single frontal view of the chest was obtained COMPARISON: XY CHEST PORTABLE on DOS: 09/01/24, CHEST PORTABLE on DOS: 07/23/21, CXRP on DOS: 07/23/21 FINDINGS: Lines and Tubes: None Lungs: Clear Pleura: No effusion. No pneumothorax. Cardiomediastinal contours: Unremarkable Bones: Unremarkable Metallic opacity in the visualized midline neck, projecting over the trachea, is unchanged since July 23, 2021, probably an implant /device or foreign body. IMPRESSION: 1. No acute disease. ATED BY: AVA DICKENS MD DICTATED DATE/TIME: 11/06/241422 SIGNED BY: AVA DICKENS MD SIGNED DATE/TIME: 11/06/241422 CC: [place] [address] Ph: [phone] DIAGNOSTIC IMAGING Diagnostic Imaging Report : [id number] Signed PATIENT: AGUSTO MUNROE PACCT: [id number] UNIT: [id number] : 1970 LOC: ER ROOM / BED: / AGE / SEX: 54 / M ADM STATUS: REG ER SERVICE 1346 ORDERING PHYSICIAN: GARLAND GAXIOLA DO PROCEDURE(s): HWOCT - HEAD WITHOUT CONTRAST REASON: syncope, [facility] ORDER NUMBER(s): [id number], ACCESSION NUMBER(s): [id number] EXAM: CT HEAD WITHOUT CONTRAST INDICATION: syncope, [facility] TECHNIQUE: CT of the head without intravenous contrast. Coronal and sagittal reformatted images are submitted. Radiation Dose : 1. Head: CT Dose: CTDI volume is 62.32 mGy. Dose-length product is 998.83 mGy*cm The dose indicators for CT are the volume Computed Tomography (CT) Dose Index (CTDIvol) and the Dose Length Product (DLP), and are measured in units of mGy and mGy-cm, respectively. These indicators are not patient dose, but values generated from the CT scanner acquisition factors. The report includes radiation exposure data for exposures received during this examination. All CT scans at this medical facility are performed using dose modulation techniques as appropriate to a performed exam including the following: Automated exposure control was utilized; adjustment of the MA and/or KV according to patient size; and use of iterative reconstruction technique. COMPARISON: None FINDINGS: There is no evidence of acute intracranial hemorrhage, extra-axial collection, mass effect, midline shift, herniation or hydrocephalus. The ventricles, sulci and cisterns are age appropriate. The nicole-white differentiation is intact. The visualized paranasal sinuses and mastoid air cells are clear. No depressed calvarial fracture. The surrounding soft tissues are unremarkable. IMPRESSION: 1. No evidence of acute intracranial abnormality. ATED BY: TWYLA WHEATLEY MD DICTATED DATE/TIME: 11/06/241413 SIGNED BY: TWYLA WHEATLEY MD SIGNED DATE/TIME: 11/06/24 141 CC: [place] [address] Ph: [phone] DIAGNOSTIC IMAGING Diagnostic Imaging Report : [id number] Signed PATIENT: AGUSTO MUNROE PACCT: [id number] UNIT: [id number] : 1970 LOC: TELE ROOM / BED: [address] [place] [address] AGE / SEX: 54 / M ADM STATUS: ADM IN SERVICE 0850 ORDERING PHYSICIAN: CORONA OROZCO PROCEDURE(s): CARCL - CAROTID DUPLX W COLOR DOP REASON: Syncope ORDER NUMBER(s): [id number], ACCESSION NUMBER(s): [id number] Carotid Duplex Clinical History: Syncope Comparison: None Technique: Duplex Doppler evaluation of the extracranial carotid and vertebral arteries including color Doppler and spectral/pulsed waveform analysis was performed. Findings: RIGHT SIDE: The peak systolic velocities are 78 cm/s in the CCA, 76 cm/s in the ICA. The ICA/CCA ratio is 1.0. The external carotid artery is patent with peak systolic velocity of 88 cm/s proximally. There is appropriate antegrade flow in the right vertebral artery. LEFT SIDE: The peak systolic velocities are 92 cm/s in the CCA, 103 cm/s in the ICA. The ICA/CCA ratio is 1.1. The external carotid artery is patent with peak systolic velocity of 83 cm/s proximally. There is appropriate antegrade flow in the left vertebral artery. IMPRESSION: 1. No hemodynamically significant stenosis noted in the right carotid system. 2. No hemodynamically significant stenosis noted in the left carotid system. Reference: Radiology 2003; 229:340-346 Normal ICA PSV is <125 cm/sec and no plaque or intimal thickening is visible sonographically additional criteria include ICA/CCA PSV ratio <2.0 and ICA EDV <40 cm/sec <50% ICA stenosis ICA PSV is <125 cm/sec and plaque or intimal thickening is visible sonographically additional criteria include ICA/CCA PSV ratio <2.0 and ICA EDV <40 cm/sec 50-69% ICA stenosis ICA PSV is 125-230 cm/sec and plaque is visible sonographically additional criteria include ICA/CCA PSV ratio of 2.0-4.0 and ICA EDV of 40-100 cm/sec 70% ICA stenosis but less than near occlusion ICA PSV is >230 cm/sec and visible plaque and luminal narrowing are seen at nicole-scale and color Doppler ultrasound (the higher the Doppler parameters lie above the threshold of 230 cm/sec, the greater the likelihood of severe disease) additional criteria include ICA/CCA PSV ratio >4 and ICA EDV >100 cm/sec ATED BY: SHAR GONZALEZ MD DICTATED DATE/TIME: 11/07/241222 SIGNED BY: SHAR GONZALEZ MD SIGNED DATE/TIME: 11/07/241222 CC: [place] [address] Ph: [phone] DIAGNOSTIC IMAGING Diagnostic Imaging Report : [id number] Signed PATIENT: AGUSTO MUNROE PACCT: [id number] UNIT: [id number] : 1970 LOC: TELE ROOM / BED: [facility] / A AGE / SEX: 54 / M ADM STATUS: ADM IN SERVICE 28 ORDERING PHYSICIAN: LATANYA GIRALDO MD PROCEDURE(s): KIDUS - KIDNEY REASON: trell ORDER NUMBER(s): [id number], ACCESSION NUMBER(s): [id number] US KIDNEY HISTORY: trell COMPARISON: None TECHNIQUE: Transverse and longitudinal grayscale and color doppler images were obtained of the kidneys and bladder. FINDINGS: Right kidney: Size: 10 cm Cortical thickness: Normal Echogenicity: Normal Stones: None Masses: None Hydronephrosis: None Ureters: Not well visualized. Other: None Left kidney: Size: 10.5 cm Cortical thickness: Normal Echogenicity: Normal Stones: None Masses: None Hydronephrosis: None Ureters: Not well visualized. Other: None Bladder: Normal Other: None. IMPRESSION: Normal renal ultrasound. ATED BY: ARAM GALAVIZ MD DICTATED DATE/TIME: 11/07/241206 SIGNED BY: ARAM GALAVIZ MD SIGNED DATE/TIME: 11/07/241206 CC: [address] [id number] Ph: [phone] DIAGNOSTIC IMAGING Diagnostic Imaging Report : [id number] Signed PATIENT: AGUSTO MUNROE PACCT: [id number] UNIT: [id number] : 1970 [facility] / BED: [facility] / A AGE / SEX: 54 / M ADM STATUS: ADM IN SERVICE 1142 ORDERING PHYSICIAN: CORONA OROZCO PROCEDURE(s): CWMM - CARDIOLITE MULTIPLE REASON: HFrEF rule out coronary ischemia ORDER NUMBER(s): [id number], ACCESSION NUMBER(s): [id number] APPROVED REPORT Exam: Nuclear Stress Test Indication: Rule out coronary ischemia BMI: 0 Medical History Medical History: syncope, positive orthostatic hypotension, dm, TRELL on CKD Stress Test Details Stress Test: Pharmacologic stress testing performed using 0.4 mg of regadenoson per 5 mL given IV over 10 seconds. HR Resting HR: 89 bpm Max Heart Rate (APMHR): 168 bpm Max HR Achieved: 117 bpm Target HR (85% APMHR): 143 bpm % of APMHR: 70 Recovery HR: 100 bpm BP Resting BP: 139/98 mmHg Recovery BP: 142/95 mmHg ECG Resting ECG: Sinus Rhythm Clinical Reason for Termination: Completed protocol Stress ECG Conclusion Review of the myocardial perfusion images demonstrated a moderate size area of mild intensity reduced radiotracer uptake in the mid and distal inferior wall. This appears to be fully reversible based on review of the resting images. Otherwise, there is homogeneous radiotracer uptake throughout the rest of the left ventricular myocardium. Left ventricular volumes are normal. Ejection fraction is estimated at 48% at rest and 57% with the stress. No significant transient ischemic dilatation. No gated images are available to assess for wall motion. Impression: 1. Abnormal myocardial perfusion scan suggestive of ischemia in the inferior wall. 2. Mildly decreased left ventricular systolic function with ejection fraction estimated at 48%. NM EXAM: Myocardial Perfusion REST/STRESS Imaging Protocol: Rest Tc-99m/Stress Tc-99m 1 day Resting Data Rest SPECT myocardial perfusion imaging was performed in supine position 60 minutes following the intravenous injection of 13.5 mCi of Tc-99m Sestamibi. Time of rest injection: 1200 Time of rest imagin Administration Route: IV Administration Site: Left AC Pharmacologic Stress Pharmacologic stress test was performed by injecting Regadenoson 0.4 mg IV push followed by the intravenous injection of 35 mCi of Tc-99m Sestamibi. Time of stress injection: 1250 Time of stress imagin Administration Route: IV Administration Site: Left AC Gated Stress SPECT was performed 60 minutes after stress injection. The images were gated to evaluate regional wall motion and calculate left ventricular ejection fraction. Stress only was performed in the Supine position. Nuclear Conclusion ECG Findings: negative for ischemia Clinical Findings: negative for ischemia Nuclear Findings: positive for ischemia Exercise Capacity: not assessed Left Ventricular Function: abnormal Risk Study: moderate Review of the myocardial perfusion images demonstrated a moderate size area of mild intensity reduced radiotracer uptake in the mid and distal inferior wall. This appears to be fully reversible based on review of the resting images. Otherwise, there is homogeneous radiotracer uptake throughout the rest of the left ventricular myocardium. Left ventricular volumes are normal. Ejection fraction is estimated at 48% at rest and 57% with the stress. No significant transient ischemic dilatation. No gated images are available to assess for wall motion. Impression: 1. Abnormal myocardial perfusion scan suggestive of ischemia in the inferior wall. 2. Mildly decreased left ventricular systolic function with ejection fraction estimated at 48%. SIGNED BY: CANDICE HENDRIX MD SIGNED DATE/TIME: 11/10/24 0755 CC: [place] [address] Ph: [phone] DIAGNOSTIC IMAGING Diagnostic Imaging Report : [id number] Signed PATIENT: AGUSTO MUNROE PACCT: [id number] UNIT: [id number] : 1970 LOC: [facility] ROOM / BED: [facility] / A AGE / SEX: 54 / M ADM STATUS: ADM IN SERVICE 1417 ORDERING PHYSICIAN: JANE MITCHELL RESIDENT PROCEDURE(s): KIDUS - KIDNEY REASON: retention of urine post voidal 292 ORDER NUMBER(s): [id number], ACCESSION NUMBER(s): [id number] RENAL ULTRASOUND CLINICAL HISTORY: retention of urine post voidal 292 TECHNIQUE: Multiple ultrasound images of the kidneys and bladder were obtained. COMPARISON: US KIDNEY on DOS: 11/07/24 FINDINGS: The right kidney measures 9.7 cm in length. The left kidney measures 10.0 cm. The kidneys demonstrate appropriate echotexture without evidence of a discrete renal lesion, nephrolithiasis or hydronephrosis. In the bladder appears within normal limits with prevoid volume measuring 440 cc. The postvoid residual is 194 cc. IMPRESSION: 1. Unremarkable renal ultrasound. HS:Y ATED BY: DULCE SHAIKH MD DICTATED DATE/TIME: 11/09/241513 SIGNED BY: DULCE SHAIKH MD SIGNED DATE/TIME: 11/09/241513 CC: [place] [address] Ph: [phone] DIAGNOSTIC IMAGING Diagnostic Imaging Report : [id number] Signed PATIENT: AGUSTO MUNROE PACCT: [id number] UNIT: [id number] : 1970 LOC: [facility] ROOM / BED: [address] [place] [address] AGE / SEX: 54 / M ADM STATUS: ADM IN SERVICE 15 ORDERING PHYSICIAN: DINA GALAVIZ MD PROCEDURE(s): MBHL - BRAIN HEAD WO CONTRAST REASON: syncope ORDER NUMBER(s): [id number], ACCESSION NUMBER(s): [id number] PROCEDURE: MRI BRAIN HEAD WO CONTRAST INDICATION: syncope EXAM DATE: 11/09/2024 05:19 PM COMPARISON: None TECHNIQUE: MRI of the brain without intravenous contrast. FINDINGS: Diffusion weighted images of the brain demonstrate no evidence of acute infarction. There is no evidence of acute intracranial hemorrhage, extra-axial collection, mass effect, midline shift, herniation or hydrocephalus. The ventricles, sulci and cisterns appear age appropriate. The signal intensities of the brain parenchyma are within normal limits. There are no signal abnormalities on the susceptibility weighted sequences. The major vascular flow voids are present. The visualized paranasal sinuses and mastoid air cells are clear. The surrounding soft tissues and osseous structures are unremarkable. IMPRESSION: 1. No evidence of acute infarction, intracranial hemorrhage, mass effect or hydrocephalus. HS:Y ATED BY: NITIN FERNANDEZ MD DICTATED DATE/TIME: 11/09/241742 SIGNED BY: NITIN FERNANDEZ MD SIGNED DATE/TIME: 11/09/241742 CC: [address] [address] Ph: [phone] DIAGNOSTIC IMAGING Diagnostic Imaging Report : [id number] Signed PATIENT: AGUSTO MUNROE PACCT: [id number] UNIT: [id number] : 1970 LOC: [facility] AGE / SEX: 54 / M ADM STATUS: ADM IN SERVICE 1119 ORDERING PHYSICIAN: JANE MITCHELL PROCEDURE(s): ABDL - ABDOMEN LIMITED REASON: Retention of urine ORDER NUMBER(s): [id number], ACCESSION NUMBER(s): [id number] BLADDER ULTRASOUND CLINICAL HISTORY: Retention of urine TECHNIQUE: Multiple transabdominal ultrasound images of the bladder were obtained. COMPARISON: Renal ultrasound 11/07/2024 FINDINGS: The postvoid residual volume within the bladder is 209 cc. Prevoid volume in the bladder on prior ultrasound study was 847 cc. IMPRESSION: 1. Bladder postvoid residual is 209 cc. HS:Y ATED BY: DULCE SHAIKH MD DICTATED DATE/TIME: 11/10/24 141 SIGNED BY: DULCE SHAIKH MD SIGNED DATE/TIME: 11/10/24 141 CC: Patient: AGUSTO MUNROE Acct: [id number] : 1970 Loc: [facility] Age/Sex: 54/M Room: [facility] / Bed: A Attending Phy: JANE MITCHELL RESIDENT Operative Report - 2 Report Details Date: 11/11/24 Preop Diagnosis: Patient presented to the hospital with a syncope. He was found to have significant orthostatic hypotension. As part of the workup, he had an echo done which reported mildly decreased ejection fraction with global hypokinesis. Nuclear stress test was done which reported possible inferior wall ischemia. Patient does not have any history of angina or clinical heart failure. Postop Diagnosis: 1. Low normal LVEDP. 2. Oadzgbes-up-kxhgsi stenosis in the very distal apical LAD. 3. Xeelsduz-iq-pkpvia stenosis in a small right posterolateral branch. 4. Otherwise, there is mild multivessel coronary artery disease. Surgeon: Candice Hendrix MD Anesthesiologist: The patient was deemed an adequate candidate for conscious sedation. Versed and fentanyl were given during the procedure. He was given2 mg of Versed and 50 mcg of fentanyl. I was available for continued nzkq-lf-jsyu monitoring throughout the procedure. Anesthesia: Local Consent: The patient was informed of the risks and benefits of the procedure. These include but are not limited to complications of anesthesia, postoperative infection, incomplete relief of symptoms, recurrence of symptoms, damage to blood vessels, nerves and tendons, deep venous thrombosis, pulmonary embolism and possible need for repeat surgery in the future. Estimated Blood Loss: 10 cc Name of Procedure Performed 1. Selective coronary angiography. 2. Left heart catheterization. 3. Moderated sedation. Procedure Details Procedure Details: The patient was brought to the prosthetic lab technician in a stable condition. Patient was found to have normal pulses in the right radial artery. The right wrist area was sterilized and draped in a sterile fashion. The skin was anesthetized using 1% lidocaine. Access in the right radial artery was obtained using a Seldinger approach. An 11 cm sheath was placed in the right radial artery. The left heart catheterization, left coronary angiography, and right coronary angiography were performed using a5 Estonian tiger catheter. At the completion of the procedure hemostasis in radial artery was obtained using a TR band. Findings: Hemodynamics: Aortic pressure was 100/60 mm Hg, LVEDP was 6 mm Hg. There is no significant gradient on LV to aorta pullback. Coronary angiography: The left main coronary artery is a normal caliber bifurcating vessel. It is free of any significant disease. The left anterior descending artery is moderate caliber vessel that extends to the apex. There is mild diffuse proximal to mid disease. The distal apical vessel has discrete 71% stenosis right after the takeoff of a diagonal branch. Diagonal branches are with no significant stenosis. The left circumflex artery is a normal-caliber nondominant vessel. No significant disease. There is a large obtuse marginal branch with no significant disease. The right coronary artery is a normal caliber and dominant vessel. There is mild diffuse proximal to mid disease. RPDA is large in size with no significant stenosis. The right posterolateral branch appears to be small in size with proximal 60-70% segmental stenosis. Impressions: 1. Low normal LVEDP. 2. Pakxyjqv-kh-hozzvg stenosis in the small distal apical LAD. 3. Smztmqqy-gm-umoupe stenosis in a small right posterolateral branch. 4. Otherwise there is mild diffuse multivessel coronary artery disease. Plan: 1. Medical therapy failure coronary artery disease. 2. Patient needs to be on a statin therapy with goal LDL of less than 55. 3. Better control of his diabetes mellitus. Goal hemoglobin A1c less than 7.0%. 4. Aspirin 81 mg daily indefinitely. 5. Risk factors modifications. Condition Stable Disposition 2 Still a Patient CANDICE HENDRIX MD Nov 11, 2024 12:39 DICTATED BY:CANDICE HENDRIX MD DICTATED DATE/TIME:11/11/24 1239 ELECTRONICALLY SIGNED BY:CANDICE HENDRIX MD 11/11/24 1239 ELECTRONICALLY CO-SIGNED BY: Condition at Discharge: Stable Final Diagnosis/Problems List Acute syncope likely due to orthostatic hypotension Suspected autonomic neuropathy leading to orthostatic hypotension and suspected retention of urine, rule out BPH Chronic compensated HFmrEF, newly diagnosed Rule out cardiac causes Diabetes mellitus type 2, uncontrolled, HGB A1c 10.3 TRELL on CKD stage 3 likely due to VMN OBESITY, BMI 31.6 Discharge Disposition: Home Discharge Instruct/Medications Diet: Consistent carbohydrate, Cardiac 2g Na,low cholest Activity: Light activity Follow Up/Referral: Please follow up with the primary care physician in 1 week Also follow up with your clinical education academic coordinator in 2-3 weeks Please follow up with the neurologist or Dr. Galaviz in 1-2 weeks for further evaluation of autonomic neuropathy likely due to diabetes mellitus type 2 Medications: Fludrocortisone 0.1 mg p.o. daily Midodrine 10 mg p.o. q.8h ASPIRIN 81 MG P.O. DAILY Atorvastatin 40 mg p.o. daily Please resume home pantoprazole 40 mg p.o. daily Discharge Statement: "Patient was advised to return to the ER or call 911 if any headaches, dizziness, shortness of breath, chest pain, abdominal pain, bleeding, fevers, or worsening of medical condition. Patient was counseled about treatment plan, medications, possible side effects, patientverbalized understanding. All questions were answered to the best of my ability. This discharge took greater then 30 minutes in planning, reviewing documentation, counseling the patient, and discussing with other team members." ASSESSMENT ASSESSMENT Assessment Acute syncope likely due to orthostatic hypotension Suspected autonomic neuropathy leading to orthostatic hypotension and suspected retention of urine, rule out BP Chronic compensated HFmrEF, newly diagnosed Rule out cardiac causes Diabetes mellitus type 2, uncontrolled, HGB A1c 10.3 TRELL on CKD stage 3 likely due to VMN OBESITY, BMI 31.6 Date of Service: Nov 11, 2024 Billing Provider: MARINE CABRAL MD Common Visit Codes: 84118-QYJ/OBS DISCH DAY >30min [place]IET[facility] RESIDENT Nov 11, 2024 14:56 MARINE CABRAL MD Nov 11, 2024 18:41
== END 2024-11-11 17:20 | disposition home or self-care (01) | DRG 287 ==
LOC: ER 13:30 → TELE 11-07 00:05 → TELE-WESTW 11-07 12:50
PROVIDERS: ADMIT Internal Medicine Geriatric Medicine; ATTEND Emergency Medicine
PROC: B211YZZ Fluoroscopy of Multiple Coronary Arteries using Other Contrast (ICD-10-PCS; principal; 2024-11-11)
PROC: 4A023N7 Measurement of Cardiac Sampling and Pressure, Left Heart, Percutaneous Approach (ICD-10-PCS; 2024-11-11)
DX: I95.1 Orthostatic hypotension (principal); N17.9 Acute kidney failure, unspecified; I13.0 Hypertensive heart and chronic kidney disease with heart failure and stage 1 through stage 4 chronic kidney disease, or unspecified chronic kidney disease; I50.22 Chronic systolic (congestive) heart failure; I25.10 Atherosclerotic heart disease of native coronary artery without angina pectoris; E11.22 Type 2 diabetes mellitus with diabetic chronic kidney disease; E11.65 Type 2 diabetes mellitus with hyperglycemia; E66.9 Obesity, unspecified; S09.90XA Unspecified injury of head, initial encounter; E86.0 Dehydration; M54.14 Radiculopathy, thoracic region; E11.41 Type 2 diabetes mellitus with diabetic mononeuropathy; R80.9 Proteinuria, unspecified; X58.XXXA Exposure to other specified factors, initial encounter; N18.30 Chronic kidney disease, stage 3 unspecified; Y93.89 Activity, other specified; Y92.89 Other specified places as the place of occurrence of the external cause; Y99.8 Other external cause status; Z79.84 Long term (current) use of oral hypoglycemic drugs; Z68.31 Body mass index [BMI] 31.0-31.9, adult
CPT/HCPCS: 36415; 70450; 70551; 71045; 76705; 76775; 78452; 80048; 80053; 80061; 80307; 81001; 82550; 82607; 82746; 82784; 82962; 83036; 83605; 83735; 84439; 84443; 84484; 85025; 85379; 85610; 85730; 86334; 86850; 86900; 86901; 93005; 93017; 93306; 93886; 96361; 96374; 96375; 99152; G0378; J1815; J2250; J3490; Q9967